=== PATIENT | male | born 1925 | race Caucasian/White ===

== ENCOUNTER 2017-01-15 16:27 | Inpatient (IN) | payer MEDICARE ==
--- NOTE | 2017-01-15 17:15 | ER Document Report ---
ED Medical Screen (RME) - General Mode of Arrival: Ambulatory Information source: Patient TRAVEL OUTSIDE OF THE [place] IN LAST 30 DAYS: No - HPI Patient complains to provider of: No complaints Associated Symptoms: Other - see notes above <CATERINA GRAJEDA - Last Filed: 01/15/17 17:10> <SHASHIINOCENCIOWILLIAM - Last Filed: 01/15/17 21:04> - General Chief Complaint: Psych Problem Stated Complaint: PSYCH EVAL Time Seen by Provider: 01/15/17 16:46 Notes: 89 year old male with family history of Alzheimer's was dropped off by his friend after [employer] told the friend to take the patient to the ED for evaluation earlier this afternoon. Patient is exhibiting flight of ideas and tangential thinking, and thus it is difficult to obtain a comprehensive HPI. Patient reports that he is here because he "was sick as hell and running around a pole which is not done around here." Patient states that his friend "Bret" brought him to the ED. Patient also reports that he lives alone in his truck. Patient came into the ED with a box full of medication including potassium, lisinopril, metoprolol, glipizide, aspirin, isosorbide mononitrate, furosemide, and Flomax. Patient claims that he is not taking many of these medications. The patient talks about taking a trip down to [place] to visit a friend who knows Princess Infante. He then quickly changes subject and talked about how his is a millionaire and that he will let her keep the money because she figured out away to earn it. Patient insists that we look up a book by the name of "[employer]" written by Ra Bates (himself). The book actually exists and pages of the book can be viewed and appear to exhibit similar stream of consciousness that the patient was relaying in the triage room. (CATERINA GRAJEDA) - Related Data Allergies/Adverse Reactions: No Known Allergies Allergy (Verified 12/11/15 10:43) Past Medical History - General Information source: Patient - Past Medical History Cardiac Medical History: Reports: Hx Coronary Artery Disease, Hx Hypercholesterolemia, Hx Hypertension, Hx Peripheral Vascular Disease Endocrine Medical History: Reports: Hx Diabetes Mellitus Type 2 Renal/ Medical History: Reports: Hx Renal Insufficiency. Denies: Hx Peritoneal Dialysis Musculoskeltal Medical History: Reports Hx Arthritis Psychiatric Medical History: Denies: Hx Depression Past Surgical History: Reports: Hx Adenoidectomy, Hx Cardiac Catheterization, Hx Cardiac Surgery - Quad Bypass, Hx Coronary Artery Bypass Graft - 4 vessel bypass 2004, Hx Tonsillectomy <CATERINA GRAJEDA - Last Filed: 01/15/17 17:10> Review of Systems - Review of Systems Constitutional: No symptoms reported EENT: No symptoms reported Cardiovascular: No symptoms reported Respiratory: No symptoms reported Gastrointestinal: No symptoms reported Genitourinary: No symptoms reported Male Genitourinary: No symptoms reported Musculoskeletal: No symptoms reported Skin: No symptoms reported Hematologic/Lymphatic: No symptoms reported Neurological/Psychological: No symptoms reported -: Yes All other systems reviewed and negative <CATERINA GRAJEDA - Last Filed: 01/15/17 17:10> Physical Exam - General General appearance: Other - smells of stale urine In distress: None - Neurological Neuro grossly intact: Yes - No evidence of facial droop - Psychological Associated symptoms: Flight of ideas, Tangential speech, Other - Patient appears to have loose relationship with reality and is expressing stream of consciousness thinking. Patient is also having delusions of grandeur describing friends in [place] that know Princess Chapman and a that was a baljinderaire. Patient is exhibiting perseveration when answering questions and has difficulty with word finding, often confabulating when he is unable to find words. <CATERINA GRAJEDA - Last Filed: 01/15/17 17:10> <WILLIAM CHAPA - Last Filed: 01/15/17 21:04> - Vital signs Vitals: Temp Pulse Resp BP Pulse Ox 98 F 100 16 134/95 H 100 01/15/17 16:40 01/15/17 16:40 01/15/17 16:40 01/15/17 16:40 01/15/17 16:40 - Neurological Notes: Patient is oriented to person and time, but has difficulty answering the question of place. (CATERINA GRAJEDA) Course - Laboratory Result Diagrams: 01/15/17 17:30 01/15/17 17:30 <WILLIAM CHAPA - Last Filed: 01/15/17 21:04> - Vital Signs Vital signs: Temp Pulse Resp BP Pulse Ox 98 F 100 16 134/95 H 100 01/15/17 16:40 01/15/17 16:40 01/15/17 16:40 01/15/17 16:40 01/15/17 16:40 - Laboratory Laboratory results interpreted by me: 01/15/17 01/15/17 01/15/17 17:15 17:30 17:30 RBC 4.30 L Hgb 12.7 L RDW 15.0 H Sodium 146.0 H Creatinine 1.58 H Est GFR ( Amer) 50 L Est GFR (Non-Af Amer) 42 L Direct Bilirubin 0.5 H Ammonia Urine Protein 30 H Urine Urobilinogen 4.0 H 01/15/17 17:30 RBC Hgb RDW Sodium Creatinine Est GFR ( Amer) Est GFR (Non-Af Amer) Direct Bilirubin Ammonia < 8.7 L Urine Protein Urine Urobilinogen Scribe Documentation - Scribe Written by Mark:: Mark Marin, 01/15/2017 1733 acting as scribe for :: Brenda <CATERINA GRAJEDA - Last Filed: 01/15/17 17:10>
[2017-01-15 17:52] LABS: ABSOLUTE EOSINOPHILS # (AUTO) 0.2 10^3/uL (0.0-0.6); ABSOLUTE LYMPHOCYTES (AUTO) 1.3 10^3/uL (0.5-4.7); ABSOLUTE MONOCYTES (AUTO) 0.8 10^3/uL (0.1-1.4); ABSOLUTE NEUT (AUTO) 4.6 10^3/uL (1.7-8.2); BASOPHILS % (AUTO) 0.6 % (0-2); EOSINOPHILS % (AUTO) 2.4 % (0-6); HEMATOCRIT 39.5 % (37.9-51.0); HEMOGLOBIN 12.7 g/dL (13.5-17.0); HGB HCT DIFFERENCE -1.4; LYMPHOCYTES % (AUTO) 19.3 % (13-45); MEAN CORPUSCULAR HEMOGLOBIN 29.5 pg (27.0-33.4); MEAN CORPUSCULAR HGB CONC 32.1 g/dL (32.0-36.0); MEAN CORPUSCULAR VOLUME 92 fl (80-97); MONOCYTES % (AUTO) 10.8 % (3-13); SEGMENTED NEUTROPHILS % (AUTO) 66.9 % (42-78); WHITE BLOOD COUNT 6.9 10^3/uL (4.0-10.5)
[2017-01-15 18:02] LABS: VENOUS BLOOD BASE EXCESS 0.6 mmol/L; VENOUS BLOOD HCO3 26.5 mmol/L (20-32); VENOUS BLOOD PCO2 47.6 mmHg (35-63); VENOUS BLOOD PH 7.36 (7.30-7.42)
[2017-01-15 18:08] LABS: ALANINE AMINOTRANSFERASE 50 U/L (21-72); ALBUMIN 3.9 g/dL (3.5-5.0); ALKALINE PHOSPHATASE 116 U/L (38-126); ANION GAP 13 (5-19); ASPARTATE AMINO TRANSFERASE 51 U/L (17-59); BILIRUBIN,DIRECT 0.5 mg/dL (0.0-0.4); BILIRUBIN,TOTAL 1.1 mg/dL (0.2-1.3); BLOOD UREA NITROGEN 19 mg/dL (7-20); CALCIUM 9.3 mg/dL (8.4-10.2); CARBON DIOXIDE 26 mmol/L (22-30); CHLORIDE 107 mmol/L (98-107); CREATININE RESULT 1.58 mg/dL (0.52-1.25); GLUCOSE 96 mg/dL (75-110); POTASSIUM 4.2 mmol/L (3.6-5.0); TOTAL PROTEIN 6.9 g/dL (6.3-8.2)
--- NOTE | 2017-01-15 18:18 | RADIOLOGY REPORT (SQ) ---
EXAM DESCRIPTION: CT HEAD WITHOUT COMPLETED DATE/TIME: 01/15/2017 5:57 pm REASON FOR STUDY: encephalopathy COMPARISON: None. TECHNIQUE: Axial images acquired through the brain without intravenous contrast. Images reviewed wi th bone, brain and subdural windows. Images stored on PACS. All CT scanners at this facility use dose modulation, iterative reconstruction, and/or weight based d osing when appropriate to reduce radiation dose to as low as reasonably achievable (ALARA). [facility]: Dose Right [facility]: CareDose [facility]: Dose Right [facility]: Teradose 4D [facility]: Smart Technologies RADIATION DOSE: Up-to-date CT equipment and radiation dose reduction techniques were employed. CTDIv ol: 64.6 mGy. DLP: 1163 mGy-cm. mGy. LIMITATIONS: None. FINDINGS: VENTRICLES: Normal size and contour. CEREBRUM: Cortical atrophy is present. No masses. No hemorrhage. No midline shift. Wynn/white mat ter differentiation is lost in area in the left parietal lobe. There is a broader area of decreased attenuation in the white matter in the left parietal lobe. CEREBELLUM: No masses. No hemorrhage. No alteration of density. No evidence for acute infarction. EXTRAAXIAL SPACES: No fluid collections. No masses. ORBITS AND GLOBE: No intra- or extraconal masses. Normal contour of globe without masses. CALVARIUM: No fracture. PARANASAL SINUSES: No fluid or mucosal thickening. SOFT TISSUES: No mass or hematoma. OTHER: No other significant finding. IMPRESSION: 1. Involutional changes of aging chronic microvascular ischemic disease. 2. A limited acute left parietal infarct cannot be ruled out. TECHNICAL DOCUMENTATION: JOB ID: [id number] Quality ID # [id number]: Final reports with documentation of one or more dose reduction techniques (e.g., Au tomated exposure control, adjustment of the mA and/or kV according to patient size, use of iterative reconstruction technique) 2010 [employer] [facility]- All Rights Reserved
--- NOTE | 2017-01-15 18:25 | RADIOLOGY REPORT (SQ) ---
EXAM DESCRIPTION: CHEST PA/LAT COMPLETED DATE/TIME: 01/15/2017 6:15 pm REASON FOR STUDY: encephalopathy COMPARISON: 11/20/2014 EXAM PARAMETERS: NUMBER OF VIEWS: two views TECHNIQUE: Digital Frontal and Lateral radiographic views of the chest acquired. RADIATION DOSE: NA LIMITATIONS: none FINDINGS: LUNGS AND PLEURA: The lungs are hyperexpanded. Small pleural effusions are suggested. Pu lmonary vascular congestion is seen. No localized infiltrate is appreciated. On the lateral view a rounded mass cannot be ruled out in the posterior costophrenic sulcus. MEDIASTINUM AND HILAR STRUCTURES: No masses or contour abnormalities. HEART AND VASCULAR STRUCTURES: The heart size is borderline. BONES: No acute findings. HARDWARE: None in the chest. OTHER: No other significant finding. IMPRESSION: Borderline cardiomegaly with small pleural effusions but no sergey CHF. Pulmonary vascul ar congestion is seen. Chronic lung changes are present. A rounded mass cannot be ruled out in the posterior costophrenic sulcus. TECHNICAL DOCUMENTATION: JOB ID: [id number] [id number]- All Rights Reserved
[2017-01-15 18:46] LABS: APPEARANCE,URINE CLEAR; BILIRUBIN,URINE NEGATIVE (NEGATIVE); GLUCOSE, URINE NEGATIVE (NEGATIVE); KETONES,URINE NEGATIVE (NEGATIVE); LEUKOCYTE ESTERASE,URINE NEGATIVE (NEGATIVE); NITRITE,URINE NEGATIVE (NEGATIVE); PROTEIN,URINE 30 mg/dL (NEGATIVE)
[2017-01-15 19:10] LABS: THYROID STIMULATING HORMONE 2.4 uIU/mL (0.47-4.68)
[2017-01-15 19:34] LABS: URINE BARBITURATES SCREEN NEGATIVE; URINE METHADONE SCREEN NEGATIVE; URINE OPIATES LOW NEGATIVE; URINE PHENCYCLIDINE SCREEN NEGATIVE
--- NOTE | 2017-01-15 22:44 | ER Document Report ---
ED General - General Chief Complaint: Psych Problem Stated Complaint: PSYCH EVAL Time Seen by Provider: 01/15/17 16:46 Mode of Arrival: Ambulatory Information source: Patient Notes: This is an 89-year-old man with coronary artery disease who is brought to the emergency room with a mental status change. Patient was apparently brought in by his friend because he was acting strange and driving erratically during the day. The patient lives alone. He states only family in the area is a nephew which he does not get along with. Patient does not have any complaints. Patient is brought to the ER large number of medicines. TRAVEL OUTSIDE OF THE [place] IN LAST 30 DAYS: No - HPI Onset: Just prior to arrival Onset/Duration: Sudden Quality of pain: No pain Severity: None Pain Level: Denies Associated symptoms: denies: Chest pain, Fever, Shortness of breath Exacerbated by: Denies Relieved by: Denies Similar symptoms previously: No Recently seen / treated by doctor: No - Related Data Allergies/Adverse Reactions: No Known Allergies Allergy (Verified 12/11/15 10:43) Past Medical History - General Information source: Patient - Social History Smoking Status: Former Smoker Chew tobacco use (# tins/day): No Frequency of alcohol use: None Drug Abuse: None Lives with: Alone Family History: Reviewed & Not Pertinent Patient has suicidal ideation: No Patient has homicidal ideation: No - Past Medical History Cardiac Medical History: Reports: Hx Coronary Artery Disease, Hx Hypercholesterolemia, Hx Hypertension, Hx Peripheral Vascular Disease Endocrine Medical History: Reports: Hx Diabetes Mellitus Type 2 Renal/ Medical History: Reports: Hx Renal Insufficiency. Denies: Hx Peritoneal Dialysis Musculoskeltal Medical History: Reports Hx Arthritis Psychiatric Medical History: Denies: Hx Depression Past Surgical History: Reports: Hx Adenoidectomy, Hx Cardiac Catheterization, Hx Cardiac Surgery - Quad Bypass, Hx Coronary Artery Bypass Graft - 4 vessel bypass 2004, Hx Orthopedic Surgery - hip, Hx Tonsillectomy Review of Systems - Review of Systems Constitutional: denies: Chills, Fever EENT: No symptoms reported Cardiovascular: No symptoms reported Respiratory: No symptoms reported Gastrointestinal: No symptoms reported Genitourinary: No symptoms reported Male Genitourinary: No symptoms reported Musculoskeletal: No symptoms reported Skin: No symptoms reported Hematologic/Lymphatic: No symptoms reported Neurological/Psychological: See HPI Physical Exam - Vital signs Vitals: Temp Pulse Resp BP Pulse Ox 98 F 100 16 134/95 H 100 01/15/17 16:40 01/15/17 16:40 01/15/17 16:40 01/15/17 16:40 01/15/17 16:40 Notes: Physical exam: GENERAL: An-year-old man, alert and oriented 3, confused. He has tangential speech. HEAD: Atraumatic, normocephalic. EYES: Pupils equal round and reactive to light, extraocular movements intact, sclera anicteric, conjunctiva are normal. ENT: TMs normal, nares patent, oropharynx clear without exudates. Moist mucous membranes. NECK: Normal range of motion, supple without lymphadenopathy or JVD. LUNGS: Breath sounds clear to auscultation bilaterally and equal. No wheezes rales or rhonchi. HEART: Regular rate and rhythm without murmurs, rubs or gallops. ABDOMEN: Soft, normoactive bowel sounds. No tenderness to palpation. No guarding, no rebound. No masses appreciated. EXTREMITIES: 2+ lower extremity pitting edema NEUROLOGICAL: Cranial nerves II through XII grossly intact. Normal speech, lower extremities, his sensory is grossly intact, his cerebellar is acceptable. NIH is 0. PSYCH: Normal mood, normal affect. SKIN: Warm, Dry, normal turgor, no rashes or lesions noted. Course - Re-evaluation Re-evalutation: 01/15/17 22:46 Note: This is an elderly gentleman with multiple medicines, history of coronary artery disease, presents to the emergency room with confusion and mental status changes. His NIH score is 0 (no focal neurologic defects). CT of the head shows possible new lacunar infarct. The patient does have atrial fibrillation which appears to be new as well. The plan will be 8 to admit to the medicine service as a possible new stroke in the setting of new atrial fibrillation. The patient does not meet criteria for thrombolytics based upon an unknown time of onset and an NIH score of 0 - Vital Signs Vital signs: Temp Pulse Resp BP Pulse Ox 97.7 F 100 18 150/81 H 94 01/15/17 23:01 01/15/17 23:01 01/15/17 23:01 01/15/17 23:01 01/15/17 23:01 - Laboratory Result Diagrams: 01/15/17 17:30 01/15/17 17:30 Laboratory results interpreted by me: 01/15/17 01/15/17 01/15/17 17:15 17:30 17:30 RBC 4.30 L Hgb 12.7 L RDW 15.0 H Sodium 146.0 H Creatinine 1.58 H Est GFR ( Amer) 50 L Est GFR (Non-Af Amer) 42 L Direct Bilirubin 0.5 H Ammonia Urine Protein 30 H Urine Urobilinogen 4.0 H 01/15/17 01/15/17 17:30 22:45 RBC Hgb RDW Sodium Creatinine Est GFR ( Amer) Est GFR (Non-Af Amer) Direct Bilirubin Ammonia < 8.7 L Urine Protein 30 H Urine Urobilinogen 4.0 H - Diagnostic Test Radiology reviewed: Image reviewed, Reports reviewed - CT of the head shows possible new lacunar infarct - EKG Interpretation by Me Rhythm: A.Fib - EKG shows atrial fibrillation with a ventricular rate of 114, no acute ST-T wave changes Discharge - Discharge Clinical Impression: acute CVA, Atrial Fibrillation new Condition: Stable Disposition: ADMITTED INPATIENT Admitting Provider: Hospitalist - [facility] Admitted: Telemetry
[2017-01-15 22:47] LABS: ADD ON TESTING BLD IN LAB ACKNOWLEDGE
[2017-01-15] MEDS ORDERED: METOPROLOL TARTRATE 50 MG TABLET PO ONE (22:49)
[2017-01-15] MEDS ORDERED: ASPIRIN 81 MG TABLET, CHEWABLE PO ONE (22:49)
[2017-01-15 23:02] LABS: ALCOHOL < 10 mg/dL (NONE DETECTED)
[2017-01-15 23:38] LABS: APPEARANCE,URINE CLEAR; BILIRUBIN,URINE NEGATIVE (NEGATIVE); GLUCOSE, URINE NEGATIVE (NEGATIVE); KETONES,URINE NEGATIVE (NEGATIVE); LEUKOCYTE ESTERASE,URINE NEGATIVE (NEGATIVE); NITRITE,URINE NEGATIVE (NEGATIVE); PROTEIN,URINE 30 mg/dL (NEGATIVE); URINE SPECIFIC GRAVITY 1.014
[2017-01-16] MEDS ORDERED: DEXTROSE 50%-WATER 25 GM/50 ML DISP.SYRIN IV PRN ×2 (01:40)
[2017-01-16] MEDS ORDERED: 1/2 NORMAL SALINE 1,000 ML IV PRN (01:40)
[2017-01-16] MEDS ORDERED: GLUCAGON,HUMAN RECOMB 1 MG INJ IM PRN (01:40)
[2017-01-16] MEDS ORDERED: DEXTROSE 40% GEL 15 GM TUBE PO PRN ×2 (01:40)
[2017-01-16 02:23] LABS: VENOUS BLOOD BASE EXCESS 1.6 mmol/L; VENOUS BLOOD HCO3 27.4 mmol/L (20-32); VENOUS BLOOD PCO2 48.1 mmHg (35-63); VENOUS BLOOD PH 7.37 (7.30-7.42)
[2017-01-16 02:37] LABS: ANION GAP 8 (5-19); BLOOD UREA NITROGEN 18 mg/dL (7-20); CALCIUM 8.8 mg/dL (8.4-10.2); CARBON DIOXIDE 25 mmol/L (22-30); CHLORIDE 112 mmol/L (98-107); CREATININE RESULT 1.33 mg/dL (0.52-1.25); GLUCOSE 84 mg/dL (75-110); POTASSIUM 3.6 mmol/L (3.6-5.0); SODIUM 145.4 mmol/L (137-145)
--- NOTE | 2017-01-16 05:23 | RADIOLOGY REPORT (SQ) ---
EXAM DESCRIPTION: NM LUNG VENT/PERF SCAN COMPLETED DATE/TIME: 01/16/2017 3:53 am REASON FOR STUDY: elev d dimer COMPARISON: CR, 01/15/2017. RADIONUCLIDE AND DOSE: 5.2 millicuries TC-99m MAA Intravenous 30.6 millicuries TC-99m DTPA Inhaled aerosol TECHNIQUE: Eight views of the lungs acquired post ventilation of DTPA aerosol. Eight matching views of the lungs acquired following injection of MAA. LIMITATIONS: None. FINDINGS: VENTILATION: Symmetric and mildly heterogeneous distribution of DTPA aerosol during ventil atory phase. No suspicious areas of photopenia as correlated with radiographs. PERFUSION: Perfusion images with mild nonspecific heterogeneity. No ventilation-perfusion mismatches . OTHER: No other significant finding. IMPRESSION: NEGATIVE FOR PULMONARY EMBOLI. TECHNICAL DOCUMENTATION: JOB ID: [id number] [employer]- All Rights Reserved
[2017-01-16 05:59] LABS: ANION GAP 10 (5-19); BLOOD UREA NITROGEN 18 mg/dL (7-20); CALCIUM 9.1 mg/dL (8.4-10.2); CARBON DIOXIDE 26 mmol/L (22-30); CHLORIDE 110 mmol/L (98-107); CHOLESTEROL 142.81 mg/dL (0-200); CREATININE RESULT 1.26 mg/dL (0.52-1.25); Direct HDL 41 mg/dL (>40); GLUCOSE 88 mg/dL (75-110); POTASSIUM 3.8 mmol/L (3.6-5.0); SODIUM 145.7 mmol/L (137-145); TRIGLYCERIDES 77 mg/dL (<150)
[2017-01-16 06:10] LABS: DIRECT LDL 95 mg/dL (<100)
[2017-01-16] MEDS: TAMSULOSIN HCL 0.4 MG CAP.SR.24H PO SCH (09:21)
[2017-01-16] MEDS: ASPIRIN 81 MG TABLET, ENT COATED PO SCH (09:22)
[2017-01-16] MEDS ORDERED: METOPROLOL TARTRATE 50 MG TABLET PO SCH (10:00)
[2017-01-16] MEDS: LEVALBUTEROL HCL NEB 0.63 MG/3 ML AMPUL NEB PRN (12:19)
[2017-01-16] MEDS ORDERED: FUROSEMIDE INJ/PF 40 MG/4 ML SDV IV ONE (13:00)
[2017-01-16] MEDS ORDERED: METOPROLOL TARTRATE 50 MG TABLET PO ONE (13:00)
--- NOTE | 2017-01-16 13:45 | EKG REPORT ---
SEVERITY:- ABNORMAL ECG - ATRIAL FIBRILLATION BORDERLINE RIGHT AXIS DEVIATION CONSIDER ANTEROSEPTAL INFARCT : Confirmed by: Wilian Miguel 16-Jan-2017 13:44:15
--- NOTE | 2017-01-16 15:19 | HISTORY AND PHYSICAL E ---
History and Physical NAME: ANDRES HENDRICKS : 1925 AGE: 89Y ADMITTED: 01/16/2017 ROOM: 329 CODE STATUS: DO NOT RESUSCITATE/DO NOT INTUBATE. PRIMARY CARE PROVIDER: ELISABET GUERRA MD OUTPATIENT [employer] MECHANIC: Jelani DING M.D. CHIEF COMPLAINT: Altered mental status. HISTORY OF PRESENT ILLNESS: The patient is an 89-year-old male with a past medical history of known coronary artery disease. The patient was brought into the emergency department with a chief complaint of a mental status change. The patient was apparently brought in by his friend because he was not acting right and was driving erratically during the day. The patient apparently lives alone. The patient states that his only family was his nephew, who he does not get along with; however, holds his power of sports attorney. The patient denies any other complaints. The patient was also brought into the emergency department with a large number of miscellaneous medications. The patient was noted to have a delayed response and underwent CT, which was suggestive of a left parietal infarction. The patient was also noted to be in atrial fibrillation and the patient was referred to the hospitalist for admission and management. PAST MEDICAL HISTORY: Past medical history is remarkable for: 1. Cerebrovascular disease. 2. Coronary artery disease. 3. Chronic kidney disease stage 3. 4. Diabetes mellitus type 2. 5. Dyslipidemia. 6. Hypertension. PAST SURGICAL HISTORY: Past surgical history is remarkable for: 1. Adenoidectomy. 2. Heart catheterization. 3. Coronary artery bypass grafting x4 grafts. 4. Hip repair. 5. Tonsillectomy ALLERGIES: No known drug allergies. MEDICATIONS: Home medications include: 1. Amlodipine 5 mg p.o. daily 2. Aspirin 81 mg p.o. daily. 3. Lasix 40 mg p.o. daily. 4. Glipizide 10 mg p.o. b.i.d. 5. Isosorbide mononitrate 60 mg p.o. daily. 6. Lisinopril 40 mg p.o. b.i.d. 7. Lopressor 50 mg p.o. b.i.d. 8. Potassium chloride 20 mEq p.o. daily. 9. Zocor 5 mg p.o. daily. 10. Flomax 0.4 mg p.o. daily. SOCIAL HISTORY: The patient currently resides at home alone. The patient is currently an APS case. His surrogate decision maker is Thomas , who may be reached at , who is his power of sports attorney and also his nephew. The patient does admit to be a former smoker, unable at this time to articulate how much he has smoked. He denies any alcohol abuse or illicit drug use. FAMILY MEDICAL HISTORY: The patient does not have children. Family history is positive for Alzheimer's dementia in both of his parents and family members and the patient is unsure about his siblings. REVIEW OF SYSTEMS: A full review of systems cannot be appreciated given the patient's mental status and confusion. PHYSICAL EXAMINATION: GENERAL: On examination, the patient is a well-developed, reasonably nourished, unkempt appearing 89-year-old male who is awake, alert. He is oriented to place, but no necessarily oriented to person, time, or situation. He does not appear to be in any acute distress. VITAL SIGNS: Temperature is 97.8, pulse 111, respirations 18, blood pressure is 127/94, oxygen saturation is 98% on 3 L nasal cannula. INTEGUMENTARY: Skin is warm and dry. No rash. He is not diaphoretic. HEENT: Pupils equal, round, and reactive to light and accommodation. Conjunctivae pink. Sclerae are nonicteric. There are no mouth lesions. Tongue is midline. The patient had poor dentition. NECK: Supple. There is no JVD. No palpable lymphadenopathy or thyromegaly. CARDIOVASCULAR SYSTEM: Heart is irregularly irregular. There is no murmur or rub. CHEST: Fine bilateral basal crackles, symmetrical, slightly labored. ABDOMEN: Soft, nontender, and nondistended. Bowel sounds are present. No palpable organomegaly. BACK: No CVA tenderness or sacral edema. EXTREMITIES: No clubbing, cyanosis, or peripheral signs of embolization. There are +1 pedal pulses noted bilaterally with evidence of chronic lower extremity edema. DIAGNOSTIC DATA: Lab values are as follows: Hematology obtained on 01/15/2017: WBC's are 6.9, hemoglobin is 12.7, hematocrit is 39.5, platelet count is 246,000. Coagulation obtained on 01/15/2017: D-dimer is 3.50. VBG obtained on 01/16/2017 with pH of 7.37, pCO2 is 48.1, bicarb is 27.4. Chemistries obtained on 01/16/2017: Sodium is 145, potassium is 3.8, chloride is , carbon dioxide 26, BUN 18, creatinine is 1.26, glucose 88, calcium is 9.1. Troponin is 0.023. Triglycerides of 77, cholesterol 142, LDL 95, VLDL is 15, HDL is 41. Urinalysis obtained on 01/15/2017: Color yellow, appearance clear, pH is 6.0, specific gravity is 1.014, protein 30, glucose negative, ketones negative, occult blood negative, nitrite negative, bilirubin negative, urobilinogen is 4.0, leukocyte esterase is negative, WBC's 0, RBC's 0, epithelial squamous ells less than 1, mucus rare, ascorbic acid is negative. VQ scan obtained on 01/16/2017 reveals low probability. IMPRESSION AND PLAN: 1. Acute cerebrovascular accident. Have a high suspicion for cardioembolic event given the patient's new A-fib. However, will obtain stat MRI of the brain and full-dose statin. Consult therapies and follow. 2. Atrial fibrillation with rapid ventricular response. Rate has been better controlled since resuming the patient's beta anabelle. Will continue to monitor this. Will defer Cardizem drip for now since his heart rate is now less than 120. Do appreciate Dr Ramirez's input with this. Will follow. 3. Crackles. Do have a suspicion the patient most likely has had some heart failure, especially due to atrial fibrillation. Will diuresis the patient, await echocardiogram for further classification. 4. Benign prostatic hyperplasia. Will resume patient's Flomax. 5. Hypertension. Will allow permissive hypertension by holding TRINIDAD inhibitor. DISPOSITION: The patient is a DO NOT RESUSCITATE/DO NOT INTUBATE. Pending the patient's symptomatology and diagnostic findings, will reevaluate as needed. The patient will be admitted to inpatient IMCU, as the patient's expected length of stay will surpass 2 midnights. TIME: Time spent on this admission, including assessment and plan, physical examination, patient education, and family meeting was 40 minutes. DICTATING PHYSICIAN: THOMAS HANNA NP [id number] PHY#: [id number] ID: [id number] JOB#: [id number] ACCT: [id number] cc: > [facility]
--- NOTE | 2017-01-16 16:13 | RADIOLOGY REPORT (SQ) ---
EXAM DESCRIPTION: MRI HEAD WITHOUT COMPLETED DATE/TIME: 01/16/2017 1:37 pm REASON FOR STUDY: CVA, New Afib COMPARISON: CT 01/15/2017. MRI from 2016. TECHNIQUE: Multiplanar imaging includes non-contrasted T1, T2, FLAIR, and diffusion with ADC map seq uences. Images stored on PACS. LIMITATIONS: None. FINDINGS: ANATOMY: No anomalies. Normal vascular flow voids. Pituitary fossa normal. CSF SPACES: Mildly prominent, age related involution. No hemorrhage or mass or shift in the extra-ax ial space. CEREBRUM: Posterior left frontal old infarct. Associated FLAIR hyperintensity. Spotty small vessel disease otherwise. No hemorrhage or mass or shift or hydrocephalus. POSTERIOR FOSSA: Relatively intact cerebellum. No significant mastoid fluid or IAC pathology. DIFFUSION IMAGING: Negative for acute or sub-acute infarction. ORBITS: No masses. Globes normal. PARANASAL SINUSES: No fluid levels. Mucosa normal. OTHER: No other significant finding. IMPRESSION: 1. Chronic changes. No acute infarct identified. TECHNICAL DOCUMENTATION: JOB ID: [id number]- All Rights Reserved
[2017-01-16] MEDS: INSULIN LISPRO 100 UNIT/ML 3 ML VIAL SUBCUT PRN ×2 (18:01→22:36)
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
[2017-01-16] MEDS ORDERED: APIXABAN 5 MG TABLET PO ONE (19:15)
--- NOTE | 2017-01-16 20:03 | CONSULTATION REPORT E ---
Consultation Report NAME: ANDRES HENDRICKS : 1925 AGE: 89Y DATE: 01/16/2017 ROOM: 329 A TO: MORENITA SONI M.D. FROM: TORSTEN ZHAO M.D. Requesting Physician REASON FOR CONSULTATION: The patient with confusion and new onset atrial fibrillation, most likely cerebrovascular accident. Reason for consultation is management of atrial fibrillation. HISTORY OF PRESENT ILLNESS: The patient is an 89-year-old male for whom a history is not obtainable since the patient is confused and disoriented x3. He has a past history of known coronary artery disease. The patient was brought into the emergency room by his friend since the patient was acting strange and was confused and disoriented and was driving erratically. No further history is obtained. There is no history of syncope or fall. The patient was found to be in atrial fibrillation with rapid ventricular response being not very fast. The patient underwent a CT of the head which was suggestive of a left parietal infarction, which explained the patient's confusion and disorientation. PAST MEDICAL HISTORY: 1. Positive for a history of cerebrovascular disease. It is not known whether the patient had a prior CVA, although it does not show on the CT scan that he has an old CVA. 2. He has history of coronary artery disease, history of coronary artery bypass graft surgery. It is not known whether the patient had an CA or not. 3. Diabetes mellitus type 2, dyslipidemia, hypertension. 4. There is no history of thyroid disease. 5. He also has history of chronic kidney disease stage 3. PAST SURGICAL HISTORY: 1. Positive for *------*. 2. Heart catheterization. 3. Coronary artery bypass graft surgery x4. 4. Hip repair. 5. Tonsillectomy. ALLERGIES: No known allergies. SOCIAL HISTORY: The patient lives alone in a home. He has a history of smoking in the past. He has not smoked in a few years. There is no history of EtOH abuse. CODE STATUS: He is a DNR. His surrogate healthcare decision maker is his nephew, Mr. Thomas Calixto, who has the power of criminal attorney. FAMILY HISTORY: Positive for Alzheimer's dementia in both of his parents and family members. REVIEW OF SYSTEMS: Not obtainable due to the patient's confusion. MEDICATIONS: 1. Aspirin 325 p.o. now x1 and aspirin 81 p.o. daily. 2. Atorvastatin 80 mg p.o. at bedtime. 3. Glutose 15 g p.o. p.r.n. and 30 g p.o. p.r.n., glutose 40% gel for hypoglycemia. 4. Hypoglycemia precautions with dextrose 50%, 25 g and 12.5 g p.r.n. hypoglycemia. 5. Glucagon 1 mg IM p.r.n. hypoglycemia. 6. Accu-cheks a.c., t.i.d., and bedtime with sliding scale insulin coverage. 7. Xopenex 0.63 mg nebulizer treatment q.6 hours p.r.n. 8. Metoprolol tartrate that is Lopressor 100 mg p.o. x1 and 100 mg p.o. q.12 hours. 9. Flomax 0.4 mg p.o. daily. PHYSICAL EXAMINATION: GENERAL: On examination the patient is well-built, seems to be slightly short of breath. He is very much confused but moves all 4 extremities. VITAL SIGNS: He is afebrile with a temperature of 97.8 degrees Fahrenheit, pulse of 111 beats per minute, blood pressure 127/91, respirations are 18 per minute, O2 saturations are 98% on 3 L nasal cannula. HEENT: Head is atraumatic, normocephalic. Eyes: Pupils are equal, round and regular, reactive to light and accommodation. Extraocular movements are normal. There is no conjunctival pallor. There is no scleral icterus. Ears: Tympanic membranes are intact. External auditory canals are clear. Nose: There is no deviated nasal septum. There is no inflammation of the nasal mucous membrane. Mouth: Mucous membranes of the mouth are moist, tongue is moist. There is no ulcer, there is no bleeding from the gums. Throat: There is no redness of the oropharynx. There are no exudates. SKIN: There are no skin rashes. There is no petechiae or ecchymosis. There are no skin lesions. NECK: Supple. There is no JVD. There is no lymphadenopathy. There is no goiter. Carotids are equal. There is no bruit. Trachea is central. LUNGS: Show a few rales at the bases suggestive of heart failure. There is no chest wall tenderness. HEART: S1 and S2 is heard. There is a variable S1 in intensity. There is no S3 gallop. There is no S4 gallop. There is a systolic murmur in the left sternal border and the apex. There is no rub. ABDOMEN: Soft, nontender. There is no hepatosplenomegaly. Bowel sounds are well heard. There are no tender areas or masses. EXTREMITIES: Femorals are slightly diminished. There are no femoral bruits. There is chronic mild pedal edema with venous stasis dermatitis. There is no cyanosis or clubbing or peripheral signs of embolization. Capillary refill is normal. There is no DVT or cellulitis. There is no calf tenderness. CENTRAL NERVOUS SYSTEM: The patient is conscious, but disoriented x3. No focal deficits. PSYCHIATRIC: The patient does not appear to be agitated. The patient is not in a situation where he can cooperate with a psychiatric evaluation. DIAGNOSTIC STUDIES: The patient's EKG shows atrial fibrillation, borderline right axis deviation, consider anteroseptal infarct versus lead placement. Most likely the patient had an old anterior septal CA. Head CT shows involutional changes of aging, chronic microvascular ischemic disease limited, acute left partial infarct cannot be ruled out. The patient's head MRI shows chronic changes, no acute infarct identified. The patient's chest x-ray shows borderline cardiomegaly with small pleural effusions but no sergey CHF. Pulmonary vascular congestion is seen. Chronic lung changes are present. A rounded mass cannot be ruled out in the posterior chronic costophrenic sulcus. The patient's lung scan/VQ shows negative for pulmonary emboli. The patient's white count is 6900, hemoglobin 12.7, hematocrit is 39.5, and a platelet count is 246,000. The patient's D-dimer is 3.58. The patient's sodium is 145.7, potassium is 3.8, chloride 110, CO2 is 26. The patient's BUN is 18, creatinine 1.26, GFR is 54 which is stage 3 chronic kidney disease, glucose is 88. His triglycerides are 77, his LDL cholesterol is 95, his HDL cholesterol is 41. The patient's cardiac enzymes are negative x3 in the form of troponin I being 0.028, 0.026, and 0.023. The patient's thyroid function test show a TSH of 2.40, free T4 is 1.15. IMPRESSION: 1. Most likely clinically acute cerebral infarct. In view of the patient's A-fib most likely embolic. Need to talk to the patient's power of criminal attorney about starting anticoagulation with an oral anticoagulation agent in view of the patient's renal dysfunction, advanced age. 2. Most likely he has mild congestive heart failure. LV ejection fraction not known. Agree with giving a small dose of Lasix. 3. Earlier atrial fibrillation with rapid ventricular response. At present ventricular responses of 100. Note that the patient is on metoprolol 100 mg q.12 hours. Would recommend continuing the patient's current medication with *------* from the heart rate coming down is high. 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 4. Coronary artery disease. History of coronary artery bypass graft surgery. No evidence of CA this examination. 5. 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 6. Chronic kidney disease stage 3A. 7. Hypertension. Blood pressure diastolic is still a little bit up. Would recommend adding an TRINIDAD inhibitor. Note the patient was seen at 12 noon, 40 minutes spent on the patient with more than 50% of the time spent on direct patient care and also reviewing the patient's records this admission since a history could not be obtained from the patient. His medications were reviewed and medications have been adjusted. Would also place the patient on Lasix 20 mg p.o. daily. As mentioned earlier will talk to the patient's nephew who is the power of criminal attorney in view of starting the patient on anticoagulation since the patient with renal failure and advanced age is at an increased risk of bleeding complications. But the patient did have a stroke and his corrected [id number] score is very high. As mentioned earlier clinical it sounds like a CVA in spite of the MRI being negative. This is also discussed with the hospitalist taking care of the patient and coordination of care done. Note this is a case that requires highly complex medical decision making in view of the patient's age, renal failure, clinical stroke, and high corrected [id number] score with discussion being on whether to start the patient on chronic anticoagulation therapy. DICTATING PHYSICIAN: MORENITA SONI M.D. [id number] PHY#: [id number] ID: [id number] JOB#: [id number] ACCT: [id number] cc:MORENITA SONI M.D. >
[2017-01-16] MEDS: METOPROLOL TARTRATE 50 MG TABLET PO SCH (22:10)
[2017-01-16] MEDS: ATORVASTATIN CALCIUM 80 MG TABLET PO SCH (22:11)
[2017-01-16] MEDS: LISINOPRIL 5 MG TABLET PO SCH (22:11)
[2017-01-17] MEDS: LEVALBUTEROL HCL NEB 0.63 MG/3 ML AMPUL NEB PRN (00:19)
[2017-01-17] MEDS: METOPROLOL TARTRATE 50 MG TABLET PO SCH ×2 (07:42→23:07)
[2017-01-17] MEDS ORDERED: DILTIAZEM HCL INJ 25 MG/5 ML VIAL ONE (08:22)
[2017-01-17 09:35] LABS: ARTERIAL BLOOD BASE EXCESS 0.6 mmol/L; ARTERIAL BLOOD O2 SATURATION 97.8 % (94-98)
[2017-01-17] MEDS ORDERED: DILTIAZEM HCL INJ 25 MG/5 ML VIAL IV ONE (10:00)
[2017-01-17] MEDS: LISINOPRIL 5 MG TABLET PO SCH ×2 (10:07→23:07)
[2017-01-17] MEDS: ASPIRIN 81 MG TABLET, ENT COATED PO SCH (10:08)
[2017-01-17] MEDS: FUROSEMIDE 20 MG TABLET PO SCH (10:08)
[2017-01-17] MEDS: TAMSULOSIN HCL 0.4 MG CAP.SR.24H PO SCH (10:08)
[2017-01-17] MEDS ORDERED: FUROSEMIDE INJ/PF 40 MG/4 ML SDV ONE (10:09)
[2017-01-17] MEDS ORDERED: APIXABAN 5 MG TABLET PO ONE (11:00)
[2017-01-17 11:08] LABS: ANION GAP 10 (5-19); BLOOD UREA NITROGEN 21 mg/dL (7-20); CALCIUM 8.9 mg/dL (8.4-10.2); CARBON DIOXIDE 28 mmol/L (22-30); CHLORIDE 106 mmol/L (98-107); CREATININE RESULT 1.24 mg/dL (0.52-1.25); GLUCOSE 210 mg/dL (75-110); SODIUM 143.6 mmol/L (137-145)
[2017-01-17] MEDS ORDERED: FUROSEMIDE INJ/PF 40 MG/4 ML SDV IV ONE ×2 (11:30→13:30)
--- NOTE | 2017-01-17 12:39 | PROGRESS NOTE E ---
Progress Note NAME: ANDRES HENDRICKS : 1925 AGE: 89Y DATE: 01/17/2017 ROOM: 329 SUBJECTIVE: The patient is lying in bed. The patient had been quite dyspneic this morning with very minimal activity. The patient remains confused at times. Heart rate was significantly elevated but responded well to a bolus of Cardizem. The patient is unable to provide any meaningful history and is unable to voice any concerns at this time. REVIEW OF SYSTEMS: The rest of the review of systems is unobtainable given the patient's mental status. MEDICATIONS: Medications have been reviewed. OBJECTIVE: GENERAL: The patient is an 89-year-old male who is awake, alert. He is oriented to place but not fully oriented to person, time nor situation, does not appear to be in any acute distress. VITAL SIGNS: As follows: Temperature is 97.3, pulse 69, respirations 20, blood pressure is 147/96, oxygen saturation is 96on a [id number]. SKIN: Warm and dry. No rash. He is not diaphoretic. HEENT: Pupils equal, round, reactive to light and accommodation. Conjunctivae pink. NECK: JVP is to the level of the right clavicle. CARDIOVASCULAR SYSTEM: Heart is irregularly irregular. There is no murmur or rub. CHEST: Symmetrical. Bilateral basal crackles. ABDOMEN: Tight. No area of focal tenderness. BACK: No CVA tenderness, sacral edema. EXTREMITIES: No clubbing, cyanosis. The patient does appear to have evidence of chronic edema of his lower extremities. PSYCHIATRIC: Somewhat confused. DIAGNOSTICS: Lab values are as follows: Chemistry obtained on 01/17/2017; sodium is 143, potassium 4.3, chloride is 106, carbon dioxide 28, BUN 21, creatinine is 1.24, glucose 210, calcium is 8.9. IMPRESSION AND PLAN: 1. ATRIAL FIBRILLATION WITH RAPID VENTRICULAR RESPONSE. The patient responded well to a bolus of Cardizem. I do appreciate Cardiology's input with this. The patient is fully anticoagulated. 2. CEREBROVASCULAR DISEASE. The patient had no evidence of acute infarction on MRI. 3. ACUTE SYSTOLIC CONGESTIVE HEART FAILURE, MOST LIKELY DUE TO THE RAPID VENTRICULAR RESPONSE. The patient has responded well to diuresis. Will continue this. Hopefully this will improve respiratory symptoms as well. 4. BENIGN PROSTATIC HYPERPLASIA. Will continue Flomax. 5. HYPERTENSION. Blood pressures are more improved. DISPOSITION: The patient is a DO NOT RESUSCITATE/DO NOT INTUBATE. Pending patient's symptomatology and diagnostic findings, will re-evaluate as needed. Time spent on this followup including assessment, plan, physical examination, patient education, speciality collaboration, and re-assessment is 30 minutes. DICTATING PHYSICIAN: KELL HANNA NP [id number] PHY#: [id number] ID: [id number] JOB#: [id number] ACCT: [id number] cc:KELL HANNA NP > MTDD
[2017-01-17] MEDS ORDERED: FUROSEMIDE INJ/PF 40 MG/4 ML SDV IV SCH ×2 (14:00→22:00)
[2017-01-17] MEDS: DILTIAZEM HCL/D5W 125 MG/125 ML RTUINJ IV PRN (15:23)
[2017-01-17] MEDS ORDERED: BUMETANIDE INJ/PF 1 MG/4 ML SDV IV ONE (16:30)
[2017-01-17] MEDS ORDERED: METHYLPREDNISOLONE INJ 125 MG/2 ML SDV IV ONE (16:30)
[2017-01-17] MEDS ORDERED: POTASSIUM CHLORIDE 10 MEQ TABLET.SA PO ONE (16:30)
[2017-01-17] MEDS: APIXABAN 5 MG TABLET PO SCH (17:39)
[2017-01-17] MEDS: INSULIN LISPRO 100 UNIT/ML 3 ML VIAL SUBCUT PRN (17:40)
[2017-01-17] MEDS ORDERED: APIXABAN 5 MG TABLET PO SCH (18:00)
--- NOTE | 2017-01-17 19:59 | PROGRESS NOTE E ---
Progress Note NAME: ANDRES HENDRICKS : 1925 AGE: 89Y DATE: 01/17/2017 ROOM: 329 SUBJECTIVE: Note that the patient is very drowsy. He is having respiratory difficulty. He is on a partial nonrebreather. He continues to be in atrial fibrillation. The patient is very confused and unable to obtain a history. He seems to have orthopnea but no leg edema or PND but cannot be sure. There is no arrhythmia seen on the monitor. Note: Review of systems is not obtainable since the patient is obtunded and very drowsy and in respiratory difficulty. Medications have been reviewed. OBJECTIVE: GENERAL: On examination, the patient is an 89-year-old male who is awake and very drowsy and very confused. VITAL SIGNS: He is afebrile with a temperature of 97.4 degrees Fahrenheit, pulse is 64 beats per minute, blood pressure is 147/96 earlier and subsequently his blood pressure is 120/60. Respirations are 20 per minute, O2 saturations are 99% on a partial nonrebreather with an O2 flow rate of 10 L/min. HEENT: Head is atraumatic, normocephalic. Eyes: Pupils are equal, round and reactive to light. ENT is negative. NECK: Supple. There is mild JVD present. Carotids are equal. There is no bruit. There is no lymphadenopathy. There is accessory muscles of respiration in use. LUNGS: Show bibasilar rales of CHF. HEART: S1 and S2 is heard. There is a variable S1 present. There is no S3 gallop. There is no S4 gallop. There is a systolic murmur in the left sternal border and the apex. There is no rub. ABDOMEN: Soft, nontender. There is no hepatosplenomegaly. Bowel sounds are well heard. EXTREMITIES: There is no clubbing or cyanosis. There is no evidence of cellulitis. There is evidence of chronic mild pedal edema in the lower extremities with venous stasis dermatitis. CENTRAL NERVOUS SYSTEM: The patient is very drowsy but moves all 4 extremities. PSYCHIATRIC: The patient is confused. DIAGNOSTIC STUDIES: The patient's 24-hr intake has been 1436 mL; output is 750 mL. The patient's sodium is 143.6, potassium is 4.0, chloride is 106, CO2 is 28, BUN is 21, creatinine 1.24, GFR is reduced at 55 mL. This is chronic kidney disease stage 3. His glucose is 210 and his calcium is 8.9. Note that the patient's MRI of the brain does not show any CVA. IMPRESSION: 1. ATRIAL FIBRILLATION. At present controlled ventricular response. Continue the patient on Cardizem drip. 2. RESPIRATORY FAILURE. Would recommend continuing the patient on partial nonrebreather. 3. CONGESTIVE HEART FAILURE. It is not known whether this is [id number] systolic heart failure. Will get an echocardiogram later on to assess her LV ejection fraction. Continue the patient on diuretic. 4. BENIGN PROSTATIC HYPERPLASIA. 5. HYPERTENSION. Blood pressure seems to be well controlled. 6. CONFUSION AND DISORIENTATION. Although the patient does have CVA, the patient probably has chronic microvascular ischemia and probably has early dementia. The patient's prognosis is guarded. NOTE: Thirty minutes spent on the patient with more than 50% of the time spent on direct patient care. His medications have been reviewed and discussed with the attending physician on the case and coordination of care done. Will check an echo in the morning. Note: In view of the patient's confusion, the patient's congestive heart failure and not knowing what his LV ejection fraction is, this requires highly complex medical decision making. Will follow with you. Note that the patient is DNR and his nephew is his healthcare [id number]. DICTATING PHYSICIAN: MORENITA SONI M.D. [id number]#: [id number] ID: [id number] JOB#: [id number] ACCT: [id number] cc: >
[2017-01-17] MEDS: BUMETANIDE INJ/PF 1 MG/4 ML SDV IV SCH (23:03)
[2017-01-17] MEDS: METHYLPREDNISOLONE INJ 40 MG/1 ML SDV IV SCH (23:05)
[2017-01-17] MEDS: ATORVASTATIN CALCIUM 80 MG TABLET PO SCH (23:07)
[2017-01-17] MEDS: LEVALBUTEROL HCL NEB 1.25 MG/3 ML AMPUL NEB SCH (23:16)
[2017-01-18] MEDS: INSULIN LISPRO 100 UNIT/ML 3 ML VIAL SUBCUT PRN ×5 (01:00→22:18)
[2017-01-18] MEDS ORDERED: METOPROLOL TARTRATE PF/INJ 5 MG/5 ML SDV IV ONE (01:15)
[2017-01-18] MEDS: DILTIAZEM HCL/D5W 125 MG/125 ML RTUINJ IV PRN ×3 (03:18→23:30)
[2017-01-18] MEDS: METHYLPREDNISOLONE INJ 40 MG/1 ML SDV IV SCH ×3 (05:35→21:12)
[2017-01-18 05:58] LABS: HEMATOCRIT 38.7 % (37.9-51.0); HEMOGLOBIN 12.5 g/dL (13.5-17.0); HGB HCT DIFFERENCE -1.2; MEAN CORPUSCULAR HEMOGLOBIN 29.3 pg (27.0-33.4); MEAN CORPUSCULAR HGB CONC 32.4 g/dL (32.0-36.0); MEAN CORPUSCULAR VOLUME 90 fl (80-97); RED BLOOD COUNT 4.28 10^6/uL (4.35-5.55); RED CELL DISTRIBUTION WIDTH 14.9 % (11.5-14.0); WHITE BLOOD COUNT 6.9 10^3/uL (4.0-10.5)
[2017-01-18 06:21] LABS: ANION GAP 12 (5-19); BLOOD UREA NITROGEN 21 mg/dL (7-20); CARBON DIOXIDE 26 mmol/L (22-30); CHLORIDE 105 mmol/L (98-107); CREATININE RESULT 1.22 mg/dL (0.52-1.25); GLUCOSE 230 mg/dL (75-110); MAGNESIUM 1.9 mg/dL (1.6-2.3); POTASSIUM 3.6 mmol/L (3.6-5.0); SODIUM 143.1 mmol/L (137-145)
[2017-01-18] MEDS: LEVALBUTEROL HCL NEB 1.25 MG/3 ML AMPUL NEB SCH ×3 (08:14→23:54)
[2017-01-18] MEDS: LISINOPRIL 5 MG TABLET PO SCH ×2 (09:03→21:12)
[2017-01-18] MEDS: ASPIRIN 81 MG TABLET, ENT COATED PO SCH (09:04)
[2017-01-18] MEDS: TAMSULOSIN HCL 0.4 MG CAP.SR.24H PO SCH (09:04)
[2017-01-18] MEDS: FUROSEMIDE 20 MG TABLET PO SCH (09:04)
[2017-01-18] MEDS: APIXABAN 5 MG TABLET PO SCH ×2 (09:08→17:47)
[2017-01-18] MEDS: BUMETANIDE INJ/PF 1 MG/4 ML SDV IV SCH (09:09)
[2017-01-18] MEDS ORDERED: METOPROLOL TARTRATE PF/INJ 5 MG/5 ML SDV IV SCH (10:00)
--- NOTE | 2017-01-18 10:59 | PROGRESS NOTE E ---
Progress Note NAME: ANDRES HENDRICKS : 1925 AGE: 89Y DATE: 01/18/2017 ROOM: 329 SUBJECTIVE: The patient is currently lying in bed. He is on nasal cannula. Every night, the patient became increasingly dyspneic and was placed on BiPAP. Overall, he appears much improved. The patient now appears to be able to complete sentences. He denies any nausea, vomiting, diarrhea. No shortness of breath, dizziness, or chest pain. No fevers or chills. He is still from a cognitive standpoint, but he is seen by Psych and this appears to be a dementia issue and the patient does not voice any other concerns at this time. BRIEF HISTORY: The patient is an 89-year-old male with a past medical history of vascular dementia and cerebrovascular disease. The patient presented to the emergency department with a chief complaint of altered mental status. The patient, who is an APS case, has been having ever-increasing confusion, but had an abrupt onset. The patient does have a nephew who is a power of regulatory attorney, who does oversee the patient's affairs from a distance, as the patient himself does not get along with him. APS has been investigating the case to find the patient placement. Regardless, the patient was noted to be in atrial fibrillation and has required a Cardizem drip. The patient was subsequently volume overloaded and has diuresed relatively well with Lasix and then was transitioned to Bumex, fear of diuretic resistance, and the patient is more comfortable. REVIEW OF SYSTEMS: A full review of systems cannot be appreciated given the patient's mental status. MEDICATIONS: Medications have been reviewed. OBJECTIVE: GENERAL: The patient is an awake and alert 89-year-old male, who is oriented to place, but now fully oriented to situation. He does not appear to be in acute distress. VITAL SIGNS: Temperature is 97.6, pulse 107, respirations 22, blood pressure is 135/71, oxygen saturation is 94% on 3 L nasal cannula. SKIN: Warm and dry. No rash. He is not diaphoretic. HEENT: Pupils equal, round, and reactive to light and accommodation. Conjunctivae pink. NECK: No JVD. CARDIOVASCULAR SYSTEM: Heart is irregularly irregular. There is no rub. CHEST: The patient has bilateral basal crackles, diminished, symmetrical, not currently labored. ABDOMEN: Soft, nontender, and nondistended, but firm. BACK: There is no sacral edema. EXTREMITIES: The patient has evidence of chronic edema in his lower extremities, but warm to the touch. PSYCHIATRIC: The patient is somewhat confused, but able to answer questions. DIAGNOSTIC DATA: Lab values are as follows: Hematology obtained on 01/18/2017: WBC's are 6.7, hemoglobin is 12.5, hematocrit is 38.7, platelet count is 225,000. Chemistries obtained on 01/18/2017: Sodium is 143, potassium is 3.6, chloride is 105, carbon dioxide 26, BUN 22, creatinine is 1.22. Glucose 230, calcium is 9.0, magnesium is 1.9. IMPRESSION AND PLAN: 1. ATRIAL FIBRILLATION WITH RAPID VENTRICULAR RESPONSE. I do appreciate Cardiology's input with this. Currently on a Cardizem drip. The patient is fully anticoagulated. The patient has good pressure to work with, so will continue his beta anabelle as well. 2. CEREBROVASCULAR DISEASE. NO EVIDENCE OF ACUTE INFARCTION ON MRI. Will continue home medications. 3. ACUTE SYSTOLIC CONGESTIVE HEART FAILURE, MOST LIKELY DUE TO RAPID VENTRICULAR RESPONSE. Currently awaiting a repeat echocardiogram, most likely there is a diastolic component to this. He has responded very well to diuresis at this point. We will repeat chest x-ray though. Hopefully, we can differentiate some of this dyspnea to ensure there is no underlying pneumonia, that sort of thing. 4. BENIGN PROSTATIC HYPERPLASIA. Will continue Flomax. 5. HYPERTENSION. BLOOD PRESSURES OVERALL ARE IMPROVED. Continue current regimen. DISPOSITION: The patient is a DO NOT RESUSCITATE/DO NOT INTUBATE. Pending the patient's symptomatology and diagnostic findings, will reevaluate in the a.m. TIME: Time spent on this followup including assessment, plan, physical examination, patient education, and speciality collaboration was 30 minutes. DICTATING PHYSICIAN: KELL HANNA NP [id number] PHY#: [id number] ID: [id number] JOB#: [id number] ACCT: [id number] cc: >
[2017-01-18] MEDS: METOPROLOL TARTRATE 50 MG TABLET PO SCH (11:04)
--- NOTE | 2017-01-18 12:00 | RADIOLOGY REPORT (SQ) ---
EXAM DESCRIPTION: CHEST SINGLE VIEW COMPLETED DATE/TIME: 01/18/2017 9:18 am REASON FOR STUDY: CHF, hypoxia, dyspnea ?changes COMPARISON: 01/15/2017 NUMBER OF VIEWS: One view. TECHNIQUE: Single frontal radiographic image of the chest acquired. LIMITATIONS: Positioning. Portable technique. FINDINGS: LUNGS AND PLEURA: Increasing parenchymal density lateral to the right heart border. MEDIASTINUM AND HEART: Stable heart size and mediastinal structures. BONY STRUCTURES: No acute findings. HARDWARE: CABG. OTHER: No other significant finding. IMPRESSION: Worsening atelectasis or developing pneumonia in the middle lobe. TECHNICAL DOCUMENTATION: JOB ID: [id number]
[2017-01-18] MEDS ORDERED: GUAIFENESIN 600 MG TABLET.SA PO ONE (13:15)
--- NOTE | 2017-01-18 13:58 | PROGRESS NOTE E ---
Progress Note NAME: ANDRES HENDRICKS : 1925 AGE: 89Y DATE: 01/18/2017 ROOM: 329 SUBJECTIVE: The patient today seems to be oriented to his name and to the place but is disoriented to the time, and he keeps rambling at length about issues apart from his medical healthcare. He denies any chest pain or discomfort. There is no cough or sputum production. There is no PND or orthopnea. There is no leg edema. There is no chest pain or discomfort. There is no TIA or CVA symptoms. There is no bleeding on Eliquis. OBJECTIVE: VITAL SIGNS: On examination, the patient is afebrile with a temperature of 97.6 degrees Fahrenheit, and his pulse is 96 beats per minute, irregularly irregular. Blood pressure is 135/71. Respirations are 20 per minute. O2 sat earlier on BiPAP on FIO2 of 25% was 95%, and at present the patient is on nasal cannula at 5 L per minute with an O2 sat of 96%. GENERAL: The patient is awake, alert, he is oriented x2 but disoriented to time. He is of his stated age. He is mildly obese. He is in no acute distress. HEENT: Head is atraumatic, normocephalic. Eyes - Pupils are equal, round, regular, reactive to light and accommodation. ENT is negative. NECK: Supple. There is no JVD present. Carotids are equal. There is no bruit. There is no lymphadenopathy. There are no accessory muscles of respiration in use. LUNGS: Show no evidence of congestive heart failure. There are a few crackles in the right middle lobe. HEART: S1 and S2 is heard. There is a variable S1 present. There is no S3 gallop. There is no S4 gallop. There is a systolic murmur at the left sternal border and the apex. There is no rub. ABDOMEN: Soft, nontender. There is no hepatosplenomegaly. Bowel sounds are well heard. EXTREMITIES: There is no clubbing or cyanosis. There is no evidence of cellulitis. There is evidence of mild pitting edema in the lower extremities with venous stasis dermatitis. Femorals are diminished. There are no femoral bruits. Leg pulses are diminished. There is no cyanosis or clubbing. CENTRAL NERVOUS SYSTEM: The patient is conscious, awake. As mentioned earlier, disoriented to time and keeps rambling. There is some degree of dementia in this patient. DIAGNOSTICS: The patient's chest x-ray shows developing right middle lobe pneumonia. His white count is 6900, hemoglobin is 12.5, hematocrit is 38.7, and the platelet count is 225,000. The patient's sodium is 143.1, potassium is low normal at 3.6, chloride is 105, CO2 is 26. The patient's BUN is 21, creatinine 1.22, GFR is mildly reduced at 56 which is stage IIIA. His glucose is 230. Magnesium is 1.9 and his calcium is 9. IMPRESSION: 1. ATRIAL FIBRILLATION, AT PRESENT CONTROLLED VENTRICULAR RESPONSE. The patient is on metoprolol 100 mg p.o. b.i.d. His Cardizem drip has been discontinued. The patient is also on Eliquis without any evidence of bleeding and no TIA or CVA symptoms. 2. RESPIRATORY FAILURE. 3. CONGESTIVE HEART FAILURE, AT PRESENT SEEMS TO BE COMPENSATED. Will check an echocardiogram; see report dictated later below. 4. BENIGN PROSTATIC HYPERTROPHY. 5. HYPERTENSION. 6. PNEUMONIA, RIGHT MIDDLE LOBE. 7. CONFUSION AND DISORIENTATION SEEMS TO BE MUCH BETTER BUT STILL THE PATIENT HAS AN ELEMENT OF DEMENTIA. NOTE: Thirty minutes was spent on the patient, more than 50% of the time spent in direct patient care. His medications were reviewed. Also, the patient requires moderately complex medical decision making. Of note, THE PATIENT IS DNR and his nephew is his healthcare power of medical diagnostic radiographer. I discussed with the hospitalist taking care of the patient and formulated a plan of care for the patient. Note: More than 50% of the time was spent in direct patient care. DICTATING PHYSICIAN: MORENITA SONI M.D. [id number] PHY#: [id number] ID: [id number] JOB#: [id number] ACCT: [id number] cc: >
[2017-01-18] MEDS: PIPERACILLIN SODIUM/TAZOBACTAM 4.5 GM in NORMAL SALINE 100 ML IV SCH ×2 (15:42→20:38)
--- NOTE | 2017-01-18 18:51 | XCELERA REPORT ---
[address] [address] Transthoracic Echocardiogram Report Name: ANDRES HENDRICKS Age: 89 yrs Gender: Male : 1925 Patient Status: Inpatient Patient Location: 3S\S\329\S\A Study Date: 01/18/2017 11:08 AM Height: 73 in Weight: 235 lb BSA: 2.3 m2 Procedure: A two-dimensional transthoracic echocardiogram with color flow and Doppler was performed. The study was technically difficult with many images being suboptimal in quality. Reason For Study: new afib /CHF/HTN History: new afib /CHF/HTN. Ordering Physician: TRACY SONI Performed By: Stuart Oliva Interpretation Summary The left ventricle is normal in size. There is normal left ventricular wall thickness. LV EF is 55% Left ventricular systolic function is low normal. The left ventricular wall motion is normal. The right ventricle is not well visualized secondary to technical limitations The left atrium is moderately dilated. There is no evidence of mitral valve prolapse. There is no mitral valve stenosis. There is a mild amount of mitral regurgitation The aortic valve is mildly calcified There is no aortic valve stenosis There is no LVOT obstruction. No aortic regurgitation is present. There is no tricuspid stenosis. There is a mild to moderate amount of tricuspid regurgitation There is mild pulmonary hypertension by echo RVSP s 41 mm of Hg , with RA mean of 10. The aortic root is normal size. There is no pericardial effusion. MMode/2D Measurements \T\ Calculations RVDd: 3.3 cm LVIDd: 5.2 cm FS: 21.8 % Ao root diam: 3.1 cm IVSd: 1.1 cm LVIDs: 4.0 cm EDV(Teich): 126.9 ml LVPWd: 1.1 cm ESV(Teich): 71.2 ml Ao root area: 7.7 cm2 EF(Teich): 43.9 % Doppler Measurements \T\ Calculations MV E max anahi: MV dec slope: Ao V2 max: LV V1 max P.8 cm/sec 139.1 cm/sec 3.9 mmHg MV A max anahi: 726.8 cm/sec2 Ao max PG: LV V1 max: 0.44 cm/sec MV dec time: 7.7 mmHg 98.4 cm/sec MV E/A: 285.4 0.17 sec PA V2 max: PI end-d anahi: TR max anahi: RAP systole: 82.6 cm/sec 121.9 cm/sec 285.5 cm/sec 5.0 mmHg PA max P.7 mmHg TR max P.7 mmHg RVSP(TR): 37.7 mmHg Left Ventricle The left ventricle is normal in size. There is normal left ventricular wall thickness. LV EF is 55%. Left ventricular systolic function is low normal. LV diastolic function could not be adequately assessed due to atrial fibrilation. The left ventricular wall motion is normal. There is no thrombus. Right Ventricle The right ventricle is not well visualized secondary to technical limitations. Atria Right atrium not well visualized secondary to technical limitations. The left atrium is moderately dilated. Mitral Valve There is no evidence of mitral valve prolapse. There is no vegetation seen on the mitral valve. There is no mitral valve stenosis. There is a mild amount of mitral regurgitation. Aortic Valve The aortic valve is trileaflet. The aortic valve is mildly calcified. There is no aortic valvular vegetation. There is no aortic valve stenosis. There is no LVOT obstruction. No aortic regurgitation is present. Tricuspid Valve There is no tricuspid stenosis. There is a mild to moderate amount of tricuspid regurgitation. There is mild pulmonary hypertension by echo. RVSP s 41 mm of Hg , with RA mean of 10. Pulmonic Valve There is no pulmonic valvular stenosis. There is a trace amount of pulmonic regurgitation. Great Vessels The aortic root is normal size. Effusions There is no pericardial effusion. : TRACY SONI > Tracy Soni
[2017-01-18] MEDS: ATORVASTATIN CALCIUM 80 MG TABLET PO SCH (21:11)
[2017-01-18] MEDS: GUAIFENESIN 600 MG TABLET.SA PO SCH (21:11)
[2017-01-18] MEDS: METOPROLOL TARTRATE 100 MG TABLET PO SCH (21:12)
[2017-01-19] MEDS: PIPERACILLIN SODIUM/TAZOBACTAM 4.5 GM in NORMAL SALINE 100 ML IV SCH ×4 (02:18→22:35)
[2017-01-19] MEDS: METHYLPREDNISOLONE INJ 40 MG/1 ML SDV IV SCH (05:07)
[2017-01-19 06:12] LABS: ANION GAP 14 (5-19); BLOOD UREA NITROGEN 34 mg/dL (7-20); CALCIUM 9.6 mg/dL (8.4-10.2); CARBON DIOXIDE 27 mmol/L (22-30); CHLORIDE 102 mmol/L (98-107); CREATININE RESULT 1.49 mg/dL (0.52-1.25); GLUCOSE 189 mg/dL (75-110); MAGNESIUM 2.1 mg/dL (1.6-2.3); POTASSIUM 4.1 mmol/L (3.6-5.0); SODIUM 142.5 mmol/L (137-145)
[2017-01-19 06:29] LABS: HEMATOCRIT 39.8 % (37.9-51.0); HEMOGLOBIN 12.9 g/dL (13.5-17.0); HGB HCT DIFFERENCE -1.1; MEAN CORPUSCULAR HEMOGLOBIN 29.3 pg (27.0-33.4); MEAN CORPUSCULAR HGB CONC 32.3 g/dL (32.0-36.0); MEAN CORPUSCULAR VOLUME 91 fl (80-97); RED BLOOD COUNT 4.39 10^6/uL (4.35-5.55)
[2017-01-19 06:31] LABS: WHITE BLOOD COUNT 14.2 10^3/uL (4.0-10.5)
[2017-01-19] MEDS: METOPROLOL TARTRATE 100 MG TABLET PO SCH ×2 (08:04→22:35)
[2017-01-19] MEDS: GUAIFENESIN 600 MG TABLET.SA PO SCH ×2 (08:06→22:35)
[2017-01-19] MEDS: FUROSEMIDE 20 MG TABLET PO SCH (08:06)
[2017-01-19] MEDS: TAMSULOSIN HCL 0.4 MG CAP.SR.24H PO SCH (08:06)
[2017-01-19] MEDS: ASPIRIN 81 MG TABLET, ENT COATED PO SCH (08:06)
[2017-01-19] MEDS: LISINOPRIL 5 MG TABLET PO SCH ×2 (08:07→22:35)
[2017-01-19] MEDS: APIXABAN 5 MG TABLET PO SCH ×2 (08:07→18:46)
[2017-01-19] MEDS: INSULIN LISPRO 100 UNIT/ML 3 ML VIAL SUBCUT PRN (08:07)
[2017-01-19] MEDS: DILTIAZEM HCL/D5W 125 MG/125 ML RTUINJ IV PRN (08:21)
[2017-01-19] MEDS: LEVALBUTEROL HCL NEB 1.25 MG/3 ML AMPUL NEB SCH ×2 (10:31→16:16)
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
[2017-01-19] MEDS: PREDNISONE 20 MG TABLET PO SCH (16:00)
--- NOTE | 2017-01-19 19:29 | PROGRESS NOTE E ---
Progress Note NAME: ANDRES HENDRICKS : 1925 AGE: 89Y DATE: 01/19/2017 ROOM: 329 SUBJECTIVE: The patient denies any chest pain or discomfort. The patient appears to be comfortable. Although he seems to be oriented, he rambles about the past and with frequent fight of ideas. There are no TIA or CVA symptoms. There is no chest pain or discomfort. There is no shortness of breath. There is no PND, orthopnea. There is no leg edema. The patient denies any palpitations, near syncope, or syncope. OBJECTIVE: GENERAL: On examination the patient is well built but mildly obese. He is well groomed. He is in no acute distress. VITAL SIGNS: He is afebrile with a temperature of 97.4 degrees Fahrenheit. Pulse is 96 beats per minute. Blood pressure 106/78. Respirations are 20 per minute. O2 saturations are 91% on 3 liters nasal cannula. HEAD: Atraumatic/normocephalic. EYES: Pupils are equal, round, regular, reactive to light and accommodation. EARS, NOSE, AND THROAT: Negative. NECK: Supple. There is no JVD. Carotids are equal. There is no bruit. There is no lymphadenopathy. There are no accessory muscles of respiration being used. LUNGS: Show no evidence of congestive heart failure. There are a few crackles in the right middle lobe. HEART: S1, S2 is heard. There is variable S1 present. There is no S3 gallop. There is no S4 gallop. There is a systolic murmur in the left sternal border and the apex. There is no rub. ABDOMEN: Soft, nontender. There is no hepatosplenomegaly. Bowel sounds are well heard. EXTREMITIES: There is no clubbing or cyanosis. There is no evidence of cellulitis. There is some mild trace pedal edema with chronic venous stasis dermatitis in the lower extremities. Femorals are diminished. There are no femoral bruits. Leg pulses are diminished. There is no calf tenderness. CENTRAL NERVOUS SYSTEM: The patient is conscious, awake. As mentioned earlier, the patient rambles about the past and has very frequent flight of ideas. There is no focal deficit. PSYCHIATRIC: The patient, as mentioned earlier, is not confused. He is not agitated. His judgement seems to be intact and his affect is normal, but the patient has frequent flight of ideas and rambles about the past. FLUID BALANCE: The patient's 24-hour intake is 1559 mL, output is 855 mL. DIAGNOSTIC DATA: The patient's echocardiogram done yesterday shows the left ventricle is normal in size. There is no LVH. LV ejection fraction is low normal at 59%. There is no wall motion abnormality. The left atrium is moderately dilated. There is no evidence of mitral valve prolapse. There is no mitral valve stenosis. There is mild amount of mitral regurgitation. There is aortic sclerosis without stenosis. There is no aortic regurgitation. There is mild to moderate amount of tricuspid regurgitation. There is mild pulmonary hypertension by echocardiogram. The right ventricular systolic pressure is 41 mmHg with an RA mean of 10. There is no pericardial effusion. This has been discussed with the patient. The patient's white count is 14,200, hemoglobin is 12.9, hematocrit is 39.8, and the platelet count is 278,000. The patient's sodium is 142.5, potassium 4.1, chloride 102, CO2 is 27, the patient's BUN is 34, creatinine is 1.59, GFR is reduced at 44 which is chronic kidney disease stage 3, and his magnesium is 2.1 and his calcium is 9.6. IMPRESSION: 1. ATRIAL FIBRILLATION. At present, rate seems to be okay. Continue the patient on metoprolol 100 mg p.o. b.i.d. The patient is also on Eliquis without any evidence of bleeding or TIA or CVA. Continue Eliquis. 2. RESPIRATORY FAILURE HAS RESOLVED. 3. CONGESTIVE HEART FAILURE MOST LIKELY SECONDARY TO LV DIASTOLIC DYSFUNCTION AND ATRIAL FIBRILLATION AND VOLUME OVERLOAD SECONDARY TO RENAL FAILURE. Note that the patient's LV ejection fraction is low normal. Would recommend to continue the patient's lisinopril and continue the patient's metoprolol. 4. BENIGN PROSTATIC HYPERTROPHY. 5. HYPERTENSION, WELL CONTROLLED. 6. RIGHT MIDDLE LOBE PNEUMONIA. Continue antibiotics. 7. CONFUSION/DISORIENTATION SEEMS TO BE IMPROVED. The patient has most likely a psychiatric problem with flight of ideas and rambling. RECOMMENDATIONS: In view of the patient's advanced age and the patient's renal function, would decrease the patient's Eliquis to 2.5 mg p.o. b.i.d., continue the patient on metoprolol, continue the patient on TRINIDAD inhibitor. Note 30 minutes spent on this patient with more than 50% of that time spent on direct patient cares. The patient's medications have been reviewed and adjusted. I will decrease the patient's Eliquis to 2.5 mg p.o. b.i.d. Note, this patient requires still highly complex medical decision making due to the patient's atrial fibrillation, patient's advanced age, renal failure, and the need to adjust his medications to bring down the dose of Eliquis. All of the above discussed with the patient and discussed with the other caregiving providers on the case. After discussion with other caregiving providers on the case, we formulated a plan of care for management of this patient's critical condition. Most likely the patient will be placed in a skilled or an assisted-living facility. DICTATING PHYSICIAN: MORENITA SONI M.D. [id number] PHY#: [id number] ID: [id number] JOB#: [id number] ACCT: [id number] cc:MORENITA SONI M.D. >
[2017-01-19] MEDS: ATORVASTATIN CALCIUM 80 MG TABLET PO SCH (22:35)
[2017-01-20] MEDS: LEVALBUTEROL HCL NEB 1.25 MG/3 ML AMPUL NEB SCH ×3 (00:34→16:44)
[2017-01-20] MEDS: PIPERACILLIN SODIUM/TAZOBACTAM 4.5 GM in NORMAL SALINE 100 ML IV SCH ×4 (04:10→21:43)
[2017-01-20] MEDS: FUROSEMIDE 20 MG TABLET PO SCH (09:02)
[2017-01-20] MEDS: GUAIFENESIN 600 MG TABLET.SA PO SCH ×2 (09:02→21:46)
[2017-01-20] MEDS: TAMSULOSIN HCL 0.4 MG CAP.SR.24H PO SCH (09:02)
[2017-01-20] MEDS: PREDNISONE 20 MG TABLET PO SCH (09:03)
[2017-01-20] MEDS: ASPIRIN 81 MG TABLET, ENT COATED PO SCH (09:03)
[2017-01-20] MEDS: METOPROLOL TARTRATE 100 MG TABLET PO SCH ×2 (09:03→21:44)
[2017-01-20] MEDS: LISINOPRIL 5 MG TABLET PO SCH ×2 (09:03→21:47)
[2017-01-20] MEDS ORDERED: APIXABAN 5 MG TABLET PO SCH (10:00)
[2017-01-20] MEDS: INSULIN LISPRO 100 UNIT/ML 3 ML VIAL SUBCUT PRN ×2 (12:39→18:31)
--- NOTE | 2017-01-20 13:34 | PROGRESS NOTE E ---
Progress Note NAME: ANDRES HENDRICKS : 1925 AGE: 89Y DATE: 01/20/2017 ROOM: 329 SUBJECTIVE: Note that the patient denies any chest pain or discomfort. The patient appears to be comfortable. Although he seems to be oriented, he has flight of ideas and keeps rambling about the past. He has no chest pain or discomfort. There are no TIA or CVA symptoms. There is no PND, orthopnea or leg edema. There are no palpitations, near syncope or syncope. There is no bleeding on Eliquis. OBJECTIVE: GENERAL: On examination, the patient is well built and well nourished, at present in no acute distress. He continues to be in atrial fibrillation. VITAL SIGNS: He is afebrile with a temperature of 98.4 degrees Fahrenheit. His pulse is 99 beats per minute. His blood pressure is 136/72. Respirations are 18 per minute. O2 saturations are 98% on room air. HEENT: Head is atraumatic and normocephalic. Eyes, pupils are equal, round, regular, reactive to light and accommodation. ENT negative. NECK: Supple. There is no JVD. Carotids are equal. There is no bruit. There is no lymphadenopathy. There are no accessory muscle of respirations in use. There is no goiter. LUNGS: Clear without any rales, rhonchi or wheezes, but there are some dry crackles in the right middle lobe. HEART: S1 and S2 are heard. There is variable S1. There is no S3 gallop. There is no S4 gallop. There is a systolic murmur at the left sternal border at the apex. There is no rub. ABDOMEN: Soft, nontender. There is no hepatosplenomegaly. Bowel sounds are well heard. EXTREMITIES: There is no clubbing or cyanosis. There is no evidence of cellulitis. There is no pedal edema. There is some chronic venous stasis dermatitis in the lower extremities. Femorals are diminished. Leg pulses are diminished. There are no femoral bruits. There is no calf tenderness. CENTRAL NERVOUS SYSTEM: The patient is conscious, awake without any focal deficits. PSYCHIATRIC: The patient seems to be awake, alert and oriented x3, but has flight of ideas and also rambles about the past and hence, probably has some psychiatric problem. INTAKE AND OUTPUT: The patient's 24-hour intake and output is not accurate. LABORATORY: Blood sugar 303. IMPRESSION: 1. ATRIAL FIBRILLATION WITH PRESENT VENTRICULAR RESPONSE CONTROLLED. The patient is on metoprolol 100 mg p.o. b.i.d. The patient is also on Eliquis at 2.5 mg p.o. b.i.d. 2. RESPIRATORY FAILURE, RESOLVED. 3. CONGESTIVE HEART FAILURE MOST LIKELY SECONDARY TO LV DIASTOLIC DYSFUNCTION AND ATRIAL FIBRILLATION, AT PRESENT COMPENSATED. Continue lisinopril and continue the patient's metoprolol. 4. BENIGN PROSTATIC HYPERTROPHY. 5. HYPERTENSION, WELL CONTROLLED. 6. RIGHT MIDDLE LOBE PNEUMONIA. Continue antibiotics. Seems to have improved. The patient has no cough or sputum production. 7. CONFUSION AND DISORIENTATION HAS RESOLVED. The patient has some psychiatric problems with flight of ideas and rambling about the past. In view of this, would recommend continuing the patient on metoprolol, lisinopril and Eliquis at 2.5 mg p.o. b.i.d. NOTE: 25 minutes spent with the patient with more than 50% of the time spent on direct patient care. His medications have been reviewed. I have discussed the management plan with the other caregiving providers on the case. Will sign off the case. The patient desires to follow up with me. My office number was given to the patient as he requested it. Will follow with you. DICTATING PHYSICIAN: MORENITA SONI M.D. [id number] PHY#: [id number] ID: [id number] JOB#: [id number] ACCT: [id number] cc: >
[2017-01-20] MEDS: APIXABAN 2.5 MG TABLET PO SCH (17:39)
[2017-01-20] MEDS: ATORVASTATIN CALCIUM 80 MG TABLET PO SCH (21:46)
[2017-01-20] MEDS: RISPERIDONE 1 MG TABLET PO SCH (21:49)
[2017-01-21] MEDS: LEVALBUTEROL HCL NEB 1.25 MG/3 ML AMPUL NEB SCH ×3 (00:30→16:10)
[2017-01-21] MEDS: INSULIN LISPRO 100 UNIT/ML 3 ML VIAL SUBCUT PRN ×2 (00:31→18:08)
[2017-01-21] MEDS: PIPERACILLIN SODIUM/TAZOBACTAM 4.5 GM in NORMAL SALINE 100 ML IV SCH (03:32)
[2017-01-21 05:44] LABS: ABSOLUTE LYMPHOCYTES (AUTO) 0.7 10^3/uL (0.5-4.7); ABSOLUTE MONOCYTES (AUTO) 0.8 10^3/uL (0.1-1.4); ABSOLUTE NEUT (AUTO) 9.2 10^3/uL (1.7-8.2); BASOPHILS % (AUTO) 0.1 % (0-2); HEMATOCRIT 37.8 % (37.9-51.0); HEMOGLOBIN 12.3 g/dL (13.5-17.0); HGB HCT DIFFERENCE -0.9; LYMPHOCYTES % (AUTO) 6.1 % (13-45); MEAN CORPUSCULAR HEMOGLOBIN 29.6 pg (27.0-33.4); MEAN CORPUSCULAR HGB CONC 32.7 g/dL (32.0-36.0); MEAN CORPUSCULAR VOLUME 91 fl (80-97); MONOCYTES % (AUTO) 7.9 % (3-13); RED BLOOD COUNT 4.17 10^6/uL (4.35-5.55); RED CELL DISTRIBUTION WIDTH 14.9 % (11.5-14.0); SEGMENTED NEUTROPHILS % (AUTO) 85.9 % (42-78); WHITE BLOOD COUNT 10.8 10^3/uL (4.0-10.5)
[2017-01-21 06:08] LABS: ANION GAP 10 (5-19); BLOOD UREA NITROGEN 40 mg/dL (7-20); CALCIUM 8.8 mg/dL (8.4-10.2); CARBON DIOXIDE 29 mmol/L (22-30); CHLORIDE 104 mmol/L (98-107); GLUCOSE 134 mg/dL (75-110); POTASSIUM 3.5 mmol/L (3.6-5.0); SODIUM 143.1 mmol/L (137-145)
[2017-01-21] MEDS: METOPROLOL TARTRATE 100 MG TABLET PO SCH ×2 (09:30→22:27)
[2017-01-21] MEDS: ASPIRIN 81 MG TABLET, ENT COATED PO SCH (09:30)
[2017-01-21] MEDS: FUROSEMIDE 20 MG TABLET PO SCH (09:31)
[2017-01-21] MEDS: TAMSULOSIN HCL 0.4 MG CAP.SR.24H PO SCH (09:31)
[2017-01-21] MEDS: GUAIFENESIN 600 MG TABLET.SA PO SCH ×2 (09:31→22:26)
[2017-01-21] MEDS: PREDNISONE 20 MG TABLET PO SCH (09:31)
[2017-01-21] MEDS: LISINOPRIL 5 MG TABLET PO SCH ×2 (09:32→22:29)
[2017-01-21] MEDS: APIXABAN 2.5 MG TABLET PO SCH ×2 (09:32→18:03)
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
[2017-01-21] MEDS: AMOXICILLIN TR/POT CLAVULANATE 500-125 MG TAB PO SCH ×2 (14:47→22:27)
[2017-01-21] MEDS: HALOPERIDOL LACTATE INJ 5 MG/1 ML VIAL IV PRN (18:45)
[2017-01-21] MEDS ORDERED: METOPROLOL TARTRATE PF/INJ 5 MG/5 ML SDV IV ONE (20:00)
[2017-01-21] MEDS ORDERED: LORAZEPAM INJ 2 MG/1 ML VIAL IV ONE (20:00)
[2017-01-21] MEDS: ATORVASTATIN CALCIUM 80 MG TABLET PO SCH (22:27)
[2017-01-21] MEDS: RISPERIDONE 1 MG TABLET PO SCH (22:27)
[2017-01-22] MEDS: LEVALBUTEROL HCL NEB 1.25 MG/3 ML AMPUL NEB SCH ×3 (00:14→16:25)
[2017-01-22] MEDS: AMOXICILLIN TR/POT CLAVULANATE 500-125 MG TAB PO SCH ×3 (05:44→22:18)
[2017-01-22] MEDS: INSULIN LISPRO 100 UNIT/ML 3 ML VIAL SUBCUT PRN ×3 (07:53→22:17)
[2017-01-22] MEDS: TAMSULOSIN HCL 0.4 MG CAP.SR.24H PO SCH (10:10)
[2017-01-22] MEDS: GLIPIZIDE 10 MG TABLET PO SCH ×2 (10:10→17:58)
[2017-01-22] MEDS: FUROSEMIDE 20 MG TABLET PO SCH (10:11)
[2017-01-22] MEDS: GUAIFENESIN 600 MG TABLET.SA PO SCH ×2 (10:11→22:18)
[2017-01-22] MEDS: PREDNISONE 20 MG TABLET PO SCH (10:11)
[2017-01-22] MEDS: ISOSORBIDE MONONITRATE 30 MG TAB.ER.24H PO SCH (10:12)
[2017-01-22] MEDS: LISINOPRIL 5 MG TABLET PO SCH ×2 (10:12→22:18)
[2017-01-22] MEDS: ASPIRIN 81 MG TABLET, ENT COATED PO SCH (10:12)
[2017-01-22] MEDS: METOPROLOL TARTRATE 100 MG TABLET PO SCH ×2 (10:13→22:18)
[2017-01-22] MEDS: AMLODIPINE BESYLATE 5 MG TABLET PO SCH (10:13)
[2017-01-22] MEDS ORDERED: POTASSIUM CHLORIDE 10 MEQ TABLET.SA PO ONE (10:15)
[2017-01-22] MEDS: APIXABAN 2.5 MG TABLET PO SCH ×2 (11:38→17:57)
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
[2017-01-22] MEDS: ATORVASTATIN CALCIUM 80 MG TABLET PO SCH (22:17)
[2017-01-22] MEDS: RISPERIDONE 1 MG TABLET PO SCH (22:18)
[2017-01-23] MEDS: LEVALBUTEROL HCL NEB 1.25 MG/3 ML AMPUL NEB SCH ×4 (00:25→23:33)
[2017-01-23] MEDS: AMOXICILLIN TR/POT CLAVULANATE 500-125 MG TAB PO SCH ×3 (05:41→22:49)
[2017-01-23] MEDS: METOPROLOL TARTRATE 100 MG TABLET PO SCH ×2 (10:49→22:49)
[2017-01-23] MEDS: AMLODIPINE BESYLATE 5 MG TABLET PO SCH (10:49)
[2017-01-23] MEDS: TAMSULOSIN HCL 0.4 MG CAP.SR.24H PO SCH (10:49)
[2017-01-23] MEDS: ISOSORBIDE MONONITRATE 30 MG TAB.ER.24H PO SCH (10:50)
[2017-01-23] MEDS: LISINOPRIL 5 MG TABLET PO SCH ×2 (10:50→22:49)
[2017-01-23] MEDS: GUAIFENESIN 600 MG TABLET.SA PO SCH ×2 (10:50→22:49)
[2017-01-23] MEDS: FUROSEMIDE 20 MG TABLET PO SCH (10:51)
[2017-01-23] MEDS: GLIPIZIDE 10 MG TABLET PO SCH ×2 (10:51→17:37)
[2017-01-23] MEDS: PREDNISONE 20 MG TABLET PO SCH (10:51)
[2017-01-23] MEDS: ASPIRIN 81 MG TABLET, ENT COATED PO SCH (10:52)
[2017-01-23] MEDS: APIXABAN 2.5 MG TABLET PO SCH ×2 (10:53→17:37)
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
[2017-01-23] MEDS: INSULIN LISPRO 100 UNIT/ML 3 ML VIAL SUBCUT PRN ×2 (17:36→22:49)
[2017-01-23] MEDS: ATORVASTATIN CALCIUM 80 MG TABLET PO SCH (22:49)
[2017-01-23] MEDS: RISPERIDONE 1 MG TABLET PO SCH (22:49)
[2017-01-24] MEDS: AMOXICILLIN TR/POT CLAVULANATE 500-125 MG TAB PO SCH ×3 (06:06→22:08)
[2017-01-24] MEDS: INSULIN LISPRO 100 UNIT/ML 3 ML VIAL SUBCUT PRN ×4 (08:23→23:13)
[2017-01-24] MEDS: LEVALBUTEROL HCL NEB 1.25 MG/3 ML AMPUL NEB SCH ×3 (08:55→23:55)
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
[2017-01-24] MEDS: TAMSULOSIN HCL 0.4 MG CAP.SR.24H PO SCH (10:51)
[2017-01-24] MEDS: PREDNISONE 20 MG TABLET PO SCH (10:52)
[2017-01-24] MEDS: GUAIFENESIN 600 MG TABLET.SA PO SCH ×2 (10:52→22:08)
[2017-01-24] MEDS: GLIPIZIDE 10 MG TABLET PO SCH ×2 (10:53→17:59)
[2017-01-24] MEDS: ASPIRIN 81 MG TABLET, ENT COATED PO SCH (10:53)
[2017-01-24] MEDS: METOPROLOL TARTRATE 100 MG TABLET PO SCH ×2 (10:58→22:08)
[2017-01-24] MEDS: FUROSEMIDE 20 MG TABLET PO SCH (10:58)
[2017-01-24] MEDS: ISOSORBIDE MONONITRATE 30 MG TAB.ER.24H PO SCH (10:59)
[2017-01-24] MEDS: LISINOPRIL 5 MG TABLET PO SCH ×2 (11:00→22:09)
[2017-01-24] MEDS: AMLODIPINE BESYLATE 5 MG TABLET PO SCH (11:00)
[2017-01-24] MEDS: APIXABAN 2.5 MG TABLET PO SCH ×2 (11:03→17:59)
[2017-01-24] MEDS: ATORVASTATIN CALCIUM 80 MG TABLET PO SCH (22:07)
[2017-01-24] MEDS: RISPERIDONE 1 MG TABLET PO SCH (22:09)
[2017-01-25 04:52] LABS: ABSOLUTE LYMPHOCYTES (AUTO) 0.9 10^3/uL (0.5-4.7); ABSOLUTE MONOCYTES (AUTO) 0.8 10^3/uL (0.1-1.4); ABSOLUTE NEUT (AUTO) 9.1 10^3/uL (1.7-8.2); BASOPHILS % (AUTO) 0.1 % (0-2); EOSINOPHILS % (AUTO) 0.3 % (0-6); HEMOGLOBIN 12.2 g/dL (13.5-17.0); HGB HCT DIFFERENCE -1.4; LYMPHOCYTES % (AUTO) 8.6 % (13-45); MEAN CORPUSCULAR HEMOGLOBIN 29.3 pg (27.0-33.4); MEAN CORPUSCULAR VOLUME 92 fl (80-97); MONOCYTES % (AUTO) 7.3 % (3-13); RED BLOOD COUNT 4.15 10^6/uL (4.35-5.55); RED CELL DISTRIBUTION WIDTH 14.7 % (11.5-14.0); SEGMENTED NEUTROPHILS % (AUTO) 83.7 % (42-78); WHITE BLOOD COUNT 10.9 10^3/uL (4.0-10.5)
[2017-01-25 05:09] LABS: ANION GAP 10 (5-19); BLOOD UREA NITROGEN 40 mg/dL (7-20); CALCIUM 8.7 mg/dL (8.4-10.2); CARBON DIOXIDE 26 mmol/L (22-30); CHLORIDE 105 mmol/L (98-107); CREATININE RESULT 1.21 mg/dL (0.52-1.25); GLUCOSE 123 mg/dL (75-110); POTASSIUM 3.8 mmol/L (3.6-5.0); SODIUM 140.7 mmol/L (137-145)
[2017-01-25] MEDS: AMOXICILLIN TR/POT CLAVULANATE 500-125 MG TAB PO SCH ×3 (06:40→22:25)
[2017-01-25] MEDS: LEVALBUTEROL HCL NEB 1.25 MG/3 ML AMPUL NEB SCH ×2 (07:46→15:50)
[2017-01-25] MEDS: METOPROLOL TARTRATE 100 MG TABLET PO SCH ×2 (10:20→22:26)
[2017-01-25] MEDS: TAMSULOSIN HCL 0.4 MG CAP.SR.24H PO SCH (10:20)
[2017-01-25] MEDS: FUROSEMIDE 20 MG TABLET PO SCH (10:21)
[2017-01-25] MEDS: AMLODIPINE BESYLATE 5 MG TABLET PO SCH (10:21)
[2017-01-25] MEDS: GUAIFENESIN 600 MG TABLET.SA PO SCH ×2 (10:22→22:26)
[2017-01-25] MEDS: ASPIRIN 81 MG TABLET, ENT COATED PO SCH (10:22)
[2017-01-25] MEDS: ISOSORBIDE MONONITRATE 30 MG TAB.ER.24H PO SCH (10:22)
[2017-01-25] MEDS: LISINOPRIL 5 MG TABLET PO SCH ×2 (10:23→22:26)
[2017-01-25] MEDS: PREDNISONE 20 MG TABLET PO SCH (10:23)
[2017-01-25] MEDS: GLIPIZIDE 10 MG TABLET PO SCH ×2 (10:24→18:17)
[2017-01-25] MEDS: APIXABAN 2.5 MG TABLET PO SCH ×2 (10:34→18:17)
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
[2017-01-25] MEDS: INSULIN LISPRO 100 UNIT/ML 3 ML VIAL SUBCUT PRN (16:32)
[2017-01-25] MEDS: RISPERIDONE 1 MG TABLET PO SCH (22:25)
[2017-01-25] MEDS: ATORVASTATIN CALCIUM 80 MG TABLET PO SCH (22:26)
[2017-01-26] MEDS: LEVALBUTEROL HCL NEB 1.25 MG/3 ML AMPUL NEB SCH ×4 (00:34→23:47)
[2017-01-26] MEDS: AMOXICILLIN TR/POT CLAVULANATE 500-125 MG TAB PO SCH ×3 (06:09→22:19)
[2017-01-26] MEDS: GLIPIZIDE 10 MG TABLET PO SCH ×2 (10:40→18:09)
[2017-01-26] MEDS: ISOSORBIDE MONONITRATE 30 MG TAB.ER.24H PO SCH (10:40)
[2017-01-26] MEDS: TAMSULOSIN HCL 0.4 MG CAP.SR.24H PO SCH (10:40)
[2017-01-26] MEDS: GUAIFENESIN 600 MG TABLET.SA PO SCH ×2 (10:40→22:19)
[2017-01-26] MEDS: ASPIRIN 81 MG TABLET, ENT COATED PO SCH (10:41)
[2017-01-26] MEDS: LISINOPRIL 5 MG TABLET PO SCH ×2 (10:41→22:19)
[2017-01-26] MEDS: FUROSEMIDE 20 MG TABLET PO SCH (10:41)
[2017-01-26] MEDS: METOPROLOL TARTRATE 100 MG TABLET PO SCH ×2 (10:41→22:19)
[2017-01-26] MEDS: PREDNISONE 20 MG TABLET PO SCH (10:42)
[2017-01-26] MEDS: AMLODIPINE BESYLATE 5 MG TABLET PO SCH (10:42)
[2017-01-26] MEDS: APIXABAN 2.5 MG TABLET PO SCH ×2 (10:47→18:12)
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
[2017-01-26] MEDS: INSULIN LISPRO 100 UNIT/ML 3 ML VIAL SUBCUT PRN ×3 (11:39→22:30)
[2017-01-26] MEDS: ATORVASTATIN CALCIUM 80 MG TABLET PO SCH (22:19)
[2017-01-26] MEDS: RISPERIDONE 1 MG TABLET PO SCH (22:19)
[2017-01-26] MEDS: HALOPERIDOL LACTATE INJ 5 MG/1 ML VIAL IV PRN (22:20)
[2017-01-27] MEDS: AMOXICILLIN TR/POT CLAVULANATE 500-125 MG TAB PO SCH ×3 (06:48→23:04)
[2017-01-27] MEDS: LEVALBUTEROL HCL NEB 1.25 MG/3 ML AMPUL NEB SCH ×3 (09:33→23:43)
[2017-01-27] MEDS: PREDNISONE 20 MG TABLET PO SCH (10:23)
[2017-01-27] MEDS: DILTIAZEM HCL 120 MG CAP.SR.24H PO SCH (10:24)
[2017-01-27] MEDS: GLIPIZIDE 10 MG TABLET PO SCH ×2 (10:26→17:32)
[2017-01-27] MEDS: ISOSORBIDE MONONITRATE 30 MG TAB.ER.24H PO SCH (10:26)
[2017-01-27] MEDS: FUROSEMIDE 20 MG TABLET PO SCH ×2 (10:27→17:33)
[2017-01-27] MEDS: METOPROLOL TARTRATE 100 MG TABLET PO SCH ×2 (10:27→23:09)
[2017-01-27] MEDS: GUAIFENESIN 600 MG TABLET.SA PO SCH ×2 (10:28→23:05)
[2017-01-27] MEDS: LISINOPRIL 5 MG TABLET PO SCH ×2 (10:28→23:09)
[2017-01-27] MEDS: ASPIRIN 81 MG TABLET, ENT COATED PO SCH (10:28)
[2017-01-27] MEDS: TAMSULOSIN HCL 0.4 MG CAP.SR.24H PO SCH (10:29)
[2017-01-27] MEDS: APIXABAN 2.5 MG TABLET PO SCH ×2 (10:29→17:33)
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
[2017-01-27] MEDS ORDERED: POTASSIUM CHLORIDE 10 MEQ TABLET.SA PO SCH (12:00)
[2017-01-27] MEDS: INSULIN LISPRO 100 UNIT/ML 3 ML VIAL SUBCUT PRN ×3 (12:44→23:07)
[2017-01-27] MEDS: ATORVASTATIN CALCIUM 80 MG TABLET PO SCH (23:06)
[2017-01-27] MEDS: RISPERIDONE 1 MG TABLET PO SCH (23:06)
[2017-01-28] MEDS: AMOXICILLIN TR/POT CLAVULANATE 500-125 MG TAB PO SCH (05:51)
[2017-01-28 06:51] LABS: ABSOLUTE LYMPHOCYTES (AUTO) 0.9 10^3/uL (0.5-4.7); ABSOLUTE NEUT (AUTO) 10.3 10^3/uL (1.7-8.2); BASOPHILS % (AUTO) 0.1 % (0-2); EOSINOPHILS % (AUTO) 0.1 % (0-6); HEMOGLOBIN 11.9 g/dL (13.5-17.0); HGB HCT DIFFERENCE -1.3; LYMPHOCYTES % (AUTO) 7.2 % (13-45); MEAN CORPUSCULAR HGB CONC 32.1 g/dL (32.0-36.0); MEAN CORPUSCULAR VOLUME 90 fl (80-97); RED BLOOD COUNT 4.11 10^6/uL (4.35-5.55); RED CELL DISTRIBUTION WIDTH 15.1 % (11.5-14.0); SEGMENTED NEUTROPHILS % (AUTO) 84.6 % (42-78); WHITE BLOOD COUNT 12.2 10^3/uL (4.0-10.5)
[2017-01-28 07:07] LABS: ANION GAP 10 (5-19); BLOOD UREA NITROGEN 35 mg/dL (7-20); CALCIUM 8.9 mg/dL (8.4-10.2); CARBON DIOXIDE 26 mmol/L (22-30); CHLORIDE 103 mmol/L (98-107); CREATININE RESULT 1.09 mg/dL (0.52-1.25); GLUCOSE 207 mg/dL (75-110); POTASSIUM 4.1 mmol/L (3.6-5.0)
[2017-01-28] MEDS: INSULIN LISPRO 100 UNIT/ML 3 ML VIAL SUBCUT PRN ×4 (08:07→23:56)
[2017-01-28] MEDS: LEVALBUTEROL HCL NEB 1.25 MG/3 ML AMPUL NEB SCH (08:44)
[2017-01-28] MEDS: DILTIAZEM HCL 120 MG CAP.SR.24H PO SCH (10:21)
[2017-01-28] MEDS: PREDNISONE 20 MG TABLET PO SCH (10:21)
[2017-01-28] MEDS: GLIPIZIDE 10 MG TABLET PO SCH ×2 (10:21→18:37)
[2017-01-28] MEDS: GUAIFENESIN 600 MG TABLET.SA PO SCH ×2 (10:22→22:44)
[2017-01-28] MEDS: APIXABAN 2.5 MG TABLET PO SCH ×2 (10:22→18:37)
[2017-01-28] MEDS: TAMSULOSIN HCL 0.4 MG CAP.SR.24H PO SCH (10:23)
[2017-01-28] MEDS: ISOSORBIDE MONONITRATE 30 MG TAB.ER.24H PO SCH (10:23)
[2017-01-28] MEDS: METOPROLOL TARTRATE 100 MG TABLET PO SCH ×2 (10:23→22:46)
[2017-01-28] MEDS: LISINOPRIL 5 MG TABLET PO SCH ×2 (10:24→22:45)
[2017-01-28] MEDS: FUROSEMIDE 20 MG TABLET PO SCH ×2 (10:24→18:37)
[2017-01-28] MEDS: ASPIRIN 81 MG TABLET, ENT COATED PO SCH (10:24)
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
[2017-01-28] MEDS ORDERED: HALOPERIDOL LACTATE INJ 5 MG/1 ML VIAL IV PRN (11:29)
[2017-01-28] MEDS: POTASSIUM CHLORIDE 10 MEQ TABLET.SA PO SCH (12:35)
[2017-01-28] MEDS: ATORVASTATIN CALCIUM 80 MG TABLET PO SCH (22:44)
[2017-01-28] MEDS: RISPERIDONE 1 MG TABLET PO SCH (22:45)
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
[2017-01-29] MEDS: ISOSORBIDE MONONITRATE 60 MG TAB.ER.24H PO SCH (10:21)
[2017-01-29] MEDS: DILTIAZEM HCL 120 MG CAP.SR.24H PO SCH (10:21)
[2017-01-29] MEDS: PREDNISONE 20 MG TABLET PO SCH (10:22)
[2017-01-29] MEDS: FUROSEMIDE 20 MG TABLET PO SCH ×2 (10:22→17:17)
[2017-01-29] MEDS: GLIPIZIDE 10 MG TABLET PO SCH ×2 (10:22→17:16)
[2017-01-29] MEDS: METOPROLOL TARTRATE 100 MG TABLET PO SCH ×2 (10:22→21:28)
[2017-01-29] MEDS: ASPIRIN 81 MG TABLET, ENT COATED PO SCH (10:23)
[2017-01-29] MEDS: TAMSULOSIN HCL 0.4 MG CAP.SR.24H PO SCH (10:23)
[2017-01-29] MEDS: LISINOPRIL 5 MG TABLET PO SCH ×2 (10:23→21:28)
[2017-01-29] MEDS: GUAIFENESIN 600 MG TABLET.SA PO SCH ×2 (10:25→21:29)
[2017-01-29] MEDS: APIXABAN 2.5 MG TABLET PO SCH ×2 (10:26→17:18)
[2017-01-29] MEDS: POTASSIUM CHLORIDE 10 MEQ TABLET.SA PO SCH (11:52)
[2017-01-29] MEDS: INSULIN LISPRO 100 UNIT/ML 3 ML VIAL SUBCUT PRN ×2 (11:52→23:26)
[2017-01-29] MEDS: ATORVASTATIN CALCIUM 80 MG TABLET PO SCH (21:31)
[2017-01-30] MEDS: RISPERIDONE 1 MG TABLET PO SCH ×2 (00:03→22:09)
[2017-01-30] MEDS: DILTIAZEM HCL 120 MG CAP.SR.24H PO SCH (09:38)
[2017-01-30] MEDS: FUROSEMIDE 20 MG TABLET PO SCH ×2 (09:39→18:40)
[2017-01-30] MEDS: METOPROLOL TARTRATE 100 MG TABLET PO SCH ×2 (09:39→22:05)
[2017-01-30] MEDS: ASPIRIN 81 MG TABLET, ENT COATED PO SCH (09:39)
[2017-01-30] MEDS: PREDNISONE 20 MG TABLET PO SCH (09:39)
[2017-01-30] MEDS: LISINOPRIL 5 MG TABLET PO SCH ×2 (09:40→22:06)
[2017-01-30] MEDS: GLIPIZIDE 10 MG TABLET PO SCH ×2 (09:40→18:40)
[2017-01-30] MEDS: TAMSULOSIN HCL 0.4 MG CAP.SR.24H PO SCH (09:40)
[2017-01-30] MEDS: GUAIFENESIN 600 MG TABLET.SA PO SCH ×2 (09:40→22:06)
[2017-01-30] MEDS: ISOSORBIDE MONONITRATE 60 MG TAB.ER.24H PO SCH (09:41)
[2017-01-30] MEDS: APIXABAN 2.5 MG TABLET PO SCH ×2 (09:43→18:41)
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
[2017-01-30] MEDS: POTASSIUM CHLORIDE 10 MEQ TABLET.SA PO SCH (14:26)
[2017-01-30] MEDS: ATORVASTATIN CALCIUM 80 MG TABLET PO SCH (22:05)
[2017-01-30] MEDS: INSULIN LISPRO 100 UNIT/ML 3 ML VIAL SUBCUT PRN (22:10)
[2017-01-31] MEDS: FUROSEMIDE 20 MG TABLET PO SCH ×2 (09:38→17:47)
[2017-01-31] MEDS: GUAIFENESIN 600 MG TABLET.SA PO SCH ×2 (09:38→21:32)
[2017-01-31] MEDS: ASPIRIN 81 MG TABLET, ENT COATED PO SCH (09:38)
[2017-01-31] MEDS: TAMSULOSIN HCL 0.4 MG CAP.SR.24H PO SCH (09:39)
[2017-01-31] MEDS: GLIPIZIDE 10 MG TABLET PO SCH ×2 (09:39→17:47)
[2017-01-31] MEDS: METOPROLOL TARTRATE 100 MG TABLET PO SCH ×2 (09:39→21:32)
[2017-01-31] MEDS: PREDNISONE 20 MG TABLET PO SCH (09:39)
[2017-01-31] MEDS: DILTIAZEM HCL 120 MG CAP.SR.24H PO SCH (09:39)
[2017-01-31] MEDS: ISOSORBIDE MONONITRATE 60 MG TAB.ER.24H PO SCH (09:40)
[2017-01-31] MEDS: LISINOPRIL 5 MG TABLET PO SCH ×2 (09:40→21:32)
[2017-01-31] MEDS: APIXABAN 2.5 MG TABLET PO SCH ×2 (09:44→17:48)
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
[2017-01-31] MEDS: POTASSIUM CHLORIDE 10 MEQ TABLET.SA PO SCH (13:53)
[2017-01-31] MEDS: RISPERIDONE 1 MG TABLET PO SCH (21:32)
[2017-01-31] MEDS: ATORVASTATIN CALCIUM 80 MG TABLET PO SCH (21:32)
[2017-01-31] MEDS: INSULIN LISPRO 100 UNIT/ML 3 ML VIAL SUBCUT PRN (21:51)
[2017-02-01 06:12] LABS: ANION GAP 7 (5-19); BLOOD UREA NITROGEN 44 mg/dL (7-20); CARBON DIOXIDE 28 mmol/L (22-30); CHLORIDE 104 mmol/L (98-107); CREATININE RESULT 1.33 mg/dL (0.52-1.25); GLUCOSE 137 mg/dL (75-110); SODIUM 139.4 mmol/L (137-145)
[2017-02-01] MEDS: GLIPIZIDE 10 MG TABLET PO SCH ×2 (09:21→17:05)
[2017-02-01] MEDS: GUAIFENESIN 600 MG TABLET.SA PO SCH ×2 (09:22→21:40)
[2017-02-01] MEDS: LISINOPRIL 5 MG TABLET PO SCH ×2 (09:22→21:41)
[2017-02-01] MEDS: APIXABAN 2.5 MG TABLET PO SCH ×2 (09:23→17:05)
[2017-02-01] MEDS: METOPROLOL TARTRATE 100 MG TABLET PO SCH ×2 (09:23→21:41)
[2017-02-01] MEDS: DILTIAZEM HCL 120 MG CAP.SR.24H PO SCH (09:23)
[2017-02-01] MEDS: ISOSORBIDE MONONITRATE 60 MG TAB.ER.24H PO SCH (09:23)
[2017-02-01] MEDS: TAMSULOSIN HCL 0.4 MG CAP.SR.24H PO SCH (09:23)
[2017-02-01] MEDS: ASPIRIN 81 MG TABLET, ENT COATED PO SCH (09:23)
[2017-02-01] MEDS: PREDNISONE 20 MG TABLET PO SCH (09:23)
[2017-02-01] MEDS ORDERED: FUROSEMIDE 20 MG TABLET PO SCH (09:30)
[2017-02-01] MEDS: FUROSEMIDE 40 MG TABLET PO SCH ×2 (10:11→17:05)
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
[2017-02-01] MEDS: POTASSIUM CHLORIDE 10 MEQ TABLET.SA PO SCH (13:58)
[2017-02-01] MEDS: INSULIN LISPRO 100 UNIT/ML 3 ML VIAL SUBCUT PRN ×2 (16:04→21:47)
[2017-02-01] MEDS: ATORVASTATIN CALCIUM 80 MG TABLET PO SCH (21:40)
[2017-02-01] MEDS: RISPERIDONE 1 MG TABLET PO SCH (21:41)
[2017-02-02 07:31] LABS: ANION GAP 10 (5-19); BLOOD UREA NITROGEN 45 mg/dL (7-20); CALCIUM 9.2 mg/dL (8.4-10.2); CARBON DIOXIDE 28 mmol/L (22-30); CHLORIDE 102 mmol/L (98-107); GLUCOSE 156 mg/dL (75-110); MAGNESIUM 2.1 mg/dL (1.6-2.3); POTASSIUM 4.3 mmol/L (3.6-5.0); SODIUM 140.2 mmol/L (137-145)
[2017-02-02] MEDS: ASPIRIN 81 MG TABLET, ENT COATED PO SCH (09:53)
[2017-02-02] MEDS: FUROSEMIDE 40 MG TABLET PO SCH ×2 (09:53→17:11)
[2017-02-02] MEDS: PREDNISONE 20 MG TABLET PO SCH (09:55)
[2017-02-02] MEDS: TAMSULOSIN HCL 0.4 MG CAP.SR.24H PO SCH (09:55)
[2017-02-02] MEDS: LISINOPRIL 5 MG TABLET PO SCH ×2 (09:55→23:37)
[2017-02-02] MEDS: DILTIAZEM HCL 120 MG CAP.SR.24H PO SCH (09:55)
[2017-02-02] MEDS: METOPROLOL TARTRATE 100 MG TABLET PO SCH ×2 (09:55→23:37)
[2017-02-02] MEDS: GLIPIZIDE 10 MG TABLET PO SCH ×2 (09:55→17:11)
[2017-02-02] MEDS: GUAIFENESIN 600 MG TABLET.SA PO SCH ×2 (09:56→21:44)
[2017-02-02] MEDS: APIXABAN 2.5 MG TABLET PO SCH ×2 (09:56→17:11)
[2017-02-02] MEDS: ISOSORBIDE MONONITRATE 60 MG TAB.ER.24H PO SCH (09:56)
[2017-02-02] MEDS: POTASSIUM CHLORIDE 10 MEQ TABLET.SA PO SCH (12:11)
--- NOTE | 2017-02-02 15:35 | PDOC PROGRESS REPORT ---
Subjective Progress Note for:: 02/02/17 Physical Exam Vital Signs: Temp Pulse Resp BP Pulse Ox 97.8 F 85 16 110/74 96 02/02/17 12:00 02/02/17 12:00 02/02/17 12:00 02/02/17 12:00 02/02/17 12:00 Intake & Output 02/01/17 02/02/17 02/03/17 06:59 06:59 06:59 Intake Total 1486 1380 Balance 1486 1380 GENERAL: This is a well-developed well-nourished appearing white male resting on the side of his bed eating lunch. HEART: Regular rate and rhythm. No murmurs, rubs or gallops. LUNGS: Clear to auscultation bilaterally with equal rise and fall of the chest. ABDOMEN: Soft, nontender, nondistended with normoactive bowel sounds EXTREMETIES: No clubbing, cyanosis or edema. 2+ peripheral pulses bilaterally. NEURO: Awake, alert and oriented 3. Cranial nerves II through XII are grossly intact. PSYCH: Patient is quite animated and tangential in his conversation. Results Laboratory Results: 01/28/17 06:39 02/02/17 06:49 02/02/17 06:49 Sodium 140.2 Potassium 4.3 Chloride 102 Carbon Dioxide 28 Anion Gap 10 BUN 45 H Creatinine 1.30 H Est GFR ( Amer) > 60 Est GFR (Non-Af Amer) 52 L Glucose 156 H Calcium 9.2 Magnesium 2.1 01/16/17 05:20 Troponin I 0.023 Impressions: Head CT 01/15/17 17:47 IMPRESSION: 1. Involutional changes of aging chronic microvascular ischemic disease. 2. A limited acute left parietal infarct cannot be ruled out. Head MRI 01/16/17 00:00 IMPRESSION: 1. Chronic changes. No acute infarct identified. Lung Scan-VQ NM 01/16/17 01:37 IMPRESSION: NEGATIVE FOR PULMONARY EMBOLI. Chest X-Ray 01/18/17 00:00 IMPRESSION: Worsening atelectasis or developing pneumonia in the middle lobe. Assessment & Plan - Diagnosis (1) Community acquired pneumonia Is this a current diagnosis for this admission?: YesPlan: Status post 7 day antibiotic treatment. (2) New onset atrial fibrillation Is this a current diagnosis for this admission?: Yes (3) Vascular dementia Qualifiers: Dementia behavioral disturbance: with behavioral disturbance Qualified Code(s): F01.51 - Vascular dementia with behavioral disturbance Is this a current diagnosis for this admission?: YesPlan: Stable. (4) CKD (chronic kidney disease), stage III Is this a current diagnosis for this admission?: YesPlan: Stable. (5) DM w/o complication type II Qualifiers: Diabetes mellitus chcf insulin use: with chcf use Qualified Code(s): E11.9 - Type 2 diabetes mellitus without complications Is this a current diagnosis for this admission?: YesPlan: Current medications. (6) Dyslipidemia Is this a current diagnosis for this admission?: Yes (7) Essential hypertension Is this a current diagnosis for this admission?: YesPlan: Current medications. - Time Time Spent with patient: 25-34 minutes - Inpatient Certification Medical Necessity: Other - Remains hospitalized as he waits for placement - Plan Summary Plan Summary: Remains hospitalized because he is waiting for SNF placement. Apparently he will have to have prior approval through Medicare to go to facility. This could take upwards of 60 days.
[2017-02-02] MEDS: INSULIN LISPRO 100 UNIT/ML 3 ML VIAL SUBCUT PRN ×2 (16:09→21:44)
[2017-02-02] MEDS: ATORVASTATIN CALCIUM 80 MG TABLET PO SCH (21:44)
[2017-02-02] MEDS: RISPERIDONE 1 MG TABLET PO SCH (21:44)
[2017-02-03] MEDS: LISINOPRIL 5 MG TABLET PO SCH ×2 (11:19→23:44)
[2017-02-03] MEDS: GUAIFENESIN 600 MG TABLET.SA PO SCH ×2 (11:20→22:09)
[2017-02-03] MEDS: DILTIAZEM HCL 120 MG CAP.SR.24H PO SCH (11:20)
[2017-02-03] MEDS: TAMSULOSIN HCL 0.4 MG CAP.SR.24H PO SCH (11:21)
[2017-02-03] MEDS: ASPIRIN 81 MG TABLET, ENT COATED PO SCH (11:21)
[2017-02-03] MEDS: PREDNISONE 20 MG TABLET PO SCH (11:22)
[2017-02-03] MEDS: FUROSEMIDE 40 MG TABLET PO SCH ×2 (11:22→18:22)
[2017-02-03] MEDS: METOPROLOL TARTRATE 100 MG TABLET PO SCH ×2 (11:23→23:44)
[2017-02-03] MEDS: ISOSORBIDE MONONITRATE 60 MG TAB.ER.24H PO SCH (11:23)
[2017-02-03] MEDS: GLIPIZIDE 10 MG TABLET PO SCH ×2 (11:23→18:24)
[2017-02-03] MEDS: APIXABAN 2.5 MG TABLET PO SCH ×2 (11:25→18:25)
[2017-02-03] MEDS: POTASSIUM CHLORIDE 10 MEQ TABLET.SA PO SCH (11:27)
--- NOTE | 2017-02-03 14:04 | PDOC PROGRESS REPORT ---
Subjective Progress Note for:: 02/03/17 Subjective:: This is a follow-up visit for atrial fibrillation patient. The patient is awaiting placement. He has no complaints today he denies any chest pain or shortness of breath. Physical Exam Vital Signs: Temp Pulse Resp BP Pulse Ox 97.5 F 74 12 95/63 L 100 02/03/17 12:00 02/03/17 12:00 02/03/17 12:00 02/03/17 12:00 02/03/17 12:00 Intake & Output 02/02/17 02/03/17 02/04/17 06:59 06:59 06:59 Intake Total 1380 960 Balance 1380 960 GENERAL: Well-developed, well-nourished appearing elderly white female resting in her recliner currently in no acute distress. HEART: Regular rate and rhythm. No murmurs, rubs or gallops. LUNGS: Clear to auscultation bilaterally with equal rise and fall of the chest. ABDOMEN: Soft, nontender, nondistended with normoactive bowel sounds EXTREMETIES: No clubbing, cyanosis or edema. 2+ peripheral pulses bilaterally. NEURO: Awake, alert and oriented 3. Cranial nerves II through XII are grossly intact. Results Laboratory Results: 01/28/17 06:39 02/02/17 06:49 01/16/17 05:20 Troponin I 0.023 Impressions: Head CT 01/15/17 17:47 IMPRESSION: 1. Involutional changes of aging chronic microvascular ischemic disease. 2. A limited acute left parietal infarct cannot be ruled out. Head MRI 01/16/17 00:00 IMPRESSION: 1. Chronic changes. No acute infarct identified. Lung Scan-VQ NM 01/16/17 01:37 IMPRESSION: NEGATIVE FOR PULMONARY EMBOLI. Chest X-Ray 01/18/17 00:00 IMPRESSION: Worsening atelectasis or developing pneumonia in the middle lobe. Assessment & Plan - Diagnosis (1) Community acquired pneumonia Is this a current diagnosis for this admission?: YesPlan: Status post 7 day antibiotic treatment. (2) New onset atrial fibrillation Is this a current diagnosis for this admission?: Yes (3) Vascular dementia Qualifiers: Dementia behavioral disturbance: with behavioral disturbance Qualified Code(s): F01.51 - Vascular dementia with behavioral disturbance Is this a current diagnosis for this admission?: YesPlan: Stable. (4) CKD (chronic kidney disease), stage III Is this a current diagnosis for this admission?: YesPlan: Stable. (5) DM w/o complication type II Qualifiers: Diabetes mellitus ad terminal makeup operator insulin use: with group home use Qualified Code(s): E11.9 - Type 2 diabetes mellitus without complications Is this a current diagnosis for this admission?: YesPlan: Current medications. (6) Dyslipidemia Is this a current diagnosis for this admission?: Yes (7) Essential hypertension Is this a current diagnosis for this admission?: YesPlan: Current medications. - Time Time Spent with patient: 15-24 minutes - Inpatient Certification Medical Necessity: Need Close Monitoring Due to Risk of Patient Decompensation
[2017-02-03] MEDS: INSULIN LISPRO 100 UNIT/ML 3 ML VIAL SUBCUT PRN ×2 (18:23→22:09)
[2017-02-03] MEDS: ATORVASTATIN CALCIUM 80 MG TABLET PO SCH (22:09)
[2017-02-03] MEDS: RISPERIDONE 1 MG TABLET PO SCH (22:09)
[2017-02-04] MEDS: GUAIFENESIN 600 MG TABLET.SA PO SCH ×2 (09:51→21:37)
[2017-02-04] MEDS: ASPIRIN 81 MG TABLET, ENT COATED PO SCH (09:51)
[2017-02-04] MEDS: TAMSULOSIN HCL 0.4 MG CAP.SR.24H PO SCH (09:52)
[2017-02-04] MEDS: FUROSEMIDE 40 MG TABLET PO SCH ×2 (09:52→17:03)
[2017-02-04] MEDS: GLIPIZIDE 10 MG TABLET PO SCH ×2 (09:53→17:03)
[2017-02-04] MEDS: DILTIAZEM HCL 120 MG CAP.SR.24H PO SCH (09:54)
[2017-02-04] MEDS: PREDNISONE 20 MG TABLET PO SCH (09:54)
[2017-02-04] MEDS: APIXABAN 2.5 MG TABLET PO SCH ×2 (09:58→17:02)
[2017-02-04] MEDS: METOPROLOL TARTRATE 100 MG TABLET PO SCH ×2 (09:59→21:38)
[2017-02-04] MEDS: LISINOPRIL 5 MG TABLET PO SCH ×2 (09:59→21:38)
[2017-02-04] MEDS: ISOSORBIDE MONONITRATE 60 MG TAB.ER.24H PO SCH (09:59)
[2017-02-04] MEDS: POTASSIUM CHLORIDE 10 MEQ TABLET.SA PO SCH (12:55)
--- NOTE | 2017-02-04 13:06 | PDOC PROGRESS REPORT ---
Subjective Progress Note for:: 02/04/17 Subjective:: This is a follow-up visit for atrial fibrillation patient. The patient is awaiting placement. He has no complaints today he denies any chest pain or shortness of breath. Physical Exam Vital Signs: Temp Pulse Resp BP Pulse Ox 98.1 F 88 18 111/64 99 02/04/17 12:00 02/04/17 12:00 02/04/17 12:00 02/04/17 12:00 02/04/17 12:00 Intake & Output 02/03/17 02/04/17 02/05/17 06:59 06:59 06:59 Intake Total 960 656 Balance 960 656 GENERAL: Well-developed, well-nourished appearing elderly white female resting in her recliner currently in no acute distress. HEART: Regular rate and rhythm. No murmurs, rubs or gallops. LUNGS: Clear to auscultation bilaterally with equal rise and fall of the chest. ABDOMEN: Soft, nontender, nondistended with normoactive bowel sounds EXTREMETIES: No clubbing, cyanosis or edema. 2+ peripheral pulses bilaterally. NEURO: Awake, alert and oriented 3. Cranial nerves II through XII are grossly intact. Results Laboratory Results: 01/28/17 06:39 02/02/17 06:49 01/16/17 05:20 Troponin I 0.023 Impressions: Head CT 01/15/17 17:47 IMPRESSION: 1. Involutional changes of aging chronic microvascular ischemic disease. 2. A limited acute left parietal infarct cannot be ruled out. Head MRI 01/16/17 00:00 IMPRESSION: 1. Chronic changes. No acute infarct identified. Lung Scan-VQ NM 01/16/17 01:37 IMPRESSION: NEGATIVE FOR PULMONARY EMBOLI. Chest X-Ray 01/18/17 00:00 IMPRESSION: Worsening atelectasis or developing pneumonia in the middle lobe. Assessment & Plan - Diagnosis (1) Community acquired pneumonia Is this a current diagnosis for this admission?: YesPlan: Status post 7 day antibiotic treatment. (2) New onset atrial fibrillation Is this a current diagnosis for this admission?: YesPlan: stable (3) Vascular dementia Qualifiers: Dementia behavioral disturbance: with behavioral disturbance Qualified Code(s): F01.51 - Vascular dementia with behavioral disturbance Is this a current diagnosis for this admission?: YesPlan: Stable. (4) CKD (chronic kidney disease), stage III Is this a current diagnosis for this admission?: YesPlan: Stable. (5) DM w/o complication type II Qualifiers: Diabetes mellitus exterminator helper termite insulin use: with exterminator helper termite use Qualified Code(s): E11.9 - Type 2 diabetes mellitus without complications Is this a current diagnosis for this admission?: YesPlan: Current medications. (6) Dyslipidemia Is this a current diagnosis for this admission?: YesPlan: Continue atorvastatin (7) Essential hypertension Is this a current diagnosis for this admission?: YesPlan: Current medications. - Time Time Spent with patient: 15-24 minutes Anticipated discharge: SNF Within: when bed available - Inpatient Certification Medical Necessity: Other
[2017-02-04] MEDS: INSULIN LISPRO 100 UNIT/ML 3 ML VIAL SUBCUT PRN ×2 (16:49→21:36)
[2017-02-04] MEDS: ATORVASTATIN CALCIUM 80 MG TABLET PO SCH (21:36)
[2017-02-04] MEDS: RISPERIDONE 1 MG TABLET PO SCH (21:37)
[2017-02-05] MEDS: PREDNISONE 20 MG TABLET PO SCH (09:25)
[2017-02-05] MEDS: GUAIFENESIN 600 MG TABLET.SA PO SCH ×2 (09:25→21:11)
[2017-02-05] MEDS: GLIPIZIDE 10 MG TABLET PO SCH ×2 (09:26→17:59)
[2017-02-05] MEDS: ASPIRIN 81 MG TABLET, ENT COATED PO SCH (09:26)
[2017-02-05] MEDS: DILTIAZEM HCL 120 MG CAP.SR.24H PO SCH (09:26)
[2017-02-05] MEDS: TAMSULOSIN HCL 0.4 MG CAP.SR.24H PO SCH (09:26)
[2017-02-05] MEDS: LISINOPRIL 5 MG TABLET PO SCH ×2 (09:27→21:12)
[2017-02-05] MEDS: FUROSEMIDE 40 MG TABLET PO SCH ×2 (09:27→18:01)
[2017-02-05] MEDS: ISOSORBIDE MONONITRATE 60 MG TAB.ER.24H PO SCH (09:27)
[2017-02-05] MEDS: APIXABAN 2.5 MG TABLET PO SCH ×2 (09:28→17:59)
[2017-02-05] MEDS: METOPROLOL TARTRATE 100 MG TABLET PO SCH ×2 (09:28→21:10)
[2017-02-05] MEDS: INSULIN LISPRO 100 UNIT/ML 3 ML VIAL SUBCUT PRN ×3 (12:43→22:05)
[2017-02-05] MEDS: POTASSIUM CHLORIDE 10 MEQ TABLET.SA PO SCH (12:43)
--- NOTE | 2017-02-05 15:47 | PDOC PROGRESS REPORT ---
Subjective Progress Note for:: 02/05/17 Subjective:: This is a follow-up visit for atrial fibrillation patient. The patient is awaiting placement. He has no complaints today he denies any chest pain or shortness of breath. He was on the telephone when I came by this morning and wanted salt with out phone numbers to the room. Physical Exam Vital Signs: Temp Pulse Resp BP Pulse Ox 97.8 F 86 20 103/70 97 02/05/17 12:00 02/05/17 12:00 02/05/17 12:00 02/05/17 12:00 02/05/17 12:00 Intake & Output 02/04/17 02/05/17 02/06/17 06:59 06:59 06:59 Intake Total 656 1490 Balance 656 1490 General: A well-developed well-nourished appearing white male sitting in his wheelchair talking on the phone. Neuro: The patient is awake alert. He is not completely oriented. He is speaking filled out leave that he can be heard out into the hallway. He is quite animated. He is still quite tangential in his conversation. Cranial nerves are grossly intact. Results Laboratory Results: 01/28/17 06:39 02/02/17 06:49 01/16/17 05:20 Troponin I 0.023 Impressions: Head CT 01/15/17 17:47 IMPRESSION: 1. Involutional changes of aging chronic microvascular ischemic disease. 2. A limited acute left parietal infarct cannot be ruled out. Head MRI 01/16/17 00:00 IMPRESSION: 1. Chronic changes. No acute infarct identified. Lung Scan-VQ NM 01/16/17 01:37 IMPRESSION: NEGATIVE FOR PULMONARY EMBOLI. Chest X-Ray 01/18/17 00:00 IMPRESSION: Worsening atelectasis or developing pneumonia in the middle lobe. Assessment & Plan - Diagnosis (1) Community acquired pneumonia Is this a current diagnosis for this admission?: YesPlan: Status post 7 day antibiotic treatment. (2) New onset atrial fibrillation Is this a current diagnosis for this admission?: YesPlan: stable (3) Vascular dementia Qualifiers: Dementia behavioral disturbance: with behavioral disturbance Qualified Code(s): F01.51 - Vascular dementia with behavioral disturbance Is this a current diagnosis for this admission?: YesPlan: Stable. (4) CKD (chronic kidney disease), stage III Is this a current diagnosis for this admission?: YesPlan: Stable. (5) DM w/o complication type II Qualifiers: Diabetes mellitus mcfp insulin use: with mcfp use Qualified Code(s): E11.9 - Type 2 diabetes mellitus without complications Is this a current diagnosis for this admission?: YesPlan: Current medications. (6) Dyslipidemia Is this a current diagnosis for this admission?: YesPlan: Continue atorvastatin (7) Essential hypertension Is this a current diagnosis for this admission?: YesPlan: Current medications. - Time Time Spent with patient: Less than 15 minutes - Plan Summary Plan Summary: Awaiting placement. I spoke with discharge planning he says he will likely be able to be discharged from the hospital on Wednesday. He will need to start participating with physical therapy again in order to go through the [facility] on Wednesday. Orders for PT evaluation have been placed.
[2017-02-05] MEDS: ATORVASTATIN CALCIUM 80 MG TABLET PO SCH (21:10)
[2017-02-05] MEDS: RISPERIDONE 1 MG TABLET PO SCH (21:12)
[2017-02-06] MEDS: FUROSEMIDE 40 MG TABLET PO SCH ×2 (10:04→17:41)
[2017-02-06] MEDS: GLIPIZIDE 10 MG TABLET PO SCH ×2 (10:04→17:41)
[2017-02-06] MEDS: GUAIFENESIN 600 MG TABLET.SA PO SCH ×2 (10:04→21:19)
[2017-02-06] MEDS: DILTIAZEM HCL 120 MG CAP.SR.24H PO SCH (10:04)
[2017-02-06] MEDS: ASPIRIN 81 MG TABLET, ENT COATED PO SCH (10:04)
[2017-02-06] MEDS: ISOSORBIDE MONONITRATE 60 MG TAB.ER.24H PO SCH (10:04)
[2017-02-06] MEDS: METOPROLOL TARTRATE 100 MG TABLET PO SCH ×2 (10:04→21:20)
[2017-02-06] MEDS: APIXABAN 2.5 MG TABLET PO SCH ×2 (10:04→17:41)
[2017-02-06] MEDS: PREDNISONE 20 MG TABLET PO SCH (10:04)
[2017-02-06] MEDS: LISINOPRIL 5 MG TABLET PO SCH ×2 (10:04→21:20)
[2017-02-06] MEDS: TAMSULOSIN HCL 0.4 MG CAP.SR.24H PO SCH (10:04)
[2017-02-06] MEDS: POTASSIUM CHLORIDE 10 MEQ TABLET.SA PO SCH (11:31)
--- NOTE | 2017-02-06 16:00 | PDOC PROGRESS REPORT ---
Subjective Progress Note for:: 02/06/17 Subjective:: This is a follow-up visit for atrial fibrillation patient. The patient is awaiting placement. He has no complaints today he denies any chest pain or shortness of breath. Physical Exam Vital Signs: Temp Pulse Resp BP Pulse Ox 97.4 F 76 19 98/64 L 100 02/05/17 20:00 02/05/17 20:00 02/05/17 20:00 02/06/17 12:00 02/05/17 20:00 Intake & Output 02/05/17 02/06/17 02/07/17 06:59 06:59 06:59 Intake Total 1490 1126 Balance 1490 1126 GENERAL: This is a well-developed well-nourished appearing white male resting on the side of his wheelchair eating lunch. HEART: Regular rate and rhythm. No murmurs, rubs or gallops. LUNGS: Clear to auscultation bilaterally with equal rise and fall of the chest. ABDOMEN: nondistended EXTREMETIES: No clubbing, cyanosis or 1+ edema. 2+ peripheral pulses bilaterally. NEURO: Awake, alert and oriented 3. Cranial nerves II through XII are grossly intact. PSYCH: Unchanged. Results Laboratory Results: 01/28/17 06:39 02/02/17 06:49 01/16/17 05:20 Troponin I 0.023 Impressions: Head CT 01/15/17 17:47 IMPRESSION: 1. Involutional changes of aging chronic microvascular ischemic disease. 2. A limited acute left parietal infarct cannot be ruled out. Head MRI 01/16/17 00:00 IMPRESSION: 1. Chronic changes. No acute infarct identified. Lung Scan-VQ NM 01/16/17 01:37 IMPRESSION: NEGATIVE FOR PULMONARY EMBOLI. Chest X-Ray 01/18/17 00:00 IMPRESSION: Worsening atelectasis or developing pneumonia in the middle lobe. Assessment & Plan - Diagnosis (1) Community acquired pneumonia Is this a current diagnosis for this admission?: YesPlan: Status post 7 day antibiotic treatment. (2) New onset atrial fibrillation Is this a current diagnosis for this admission?: YesPlan: stable (3) Vascular dementia Qualifiers: Dementia behavioral disturbance: with behavioral disturbance Qualified Code(s): F01.51 - Vascular dementia with behavioral disturbance Is this a current diagnosis for this admission?: YesPlan: Stable. (4) CKD (chronic kidney disease), stage III Is this a current diagnosis for this admission?: YesPlan: Stable. (5) DM w/o complication type II Qualifiers: Diabetes mellitus halfway insulin use: with termite technician use Qualified Code(s): E11.9 - Type 2 diabetes mellitus without complications Is this a current diagnosis for this admission?: YesPlan: Current medications. (6) Dyslipidemia Is this a current diagnosis for this admission?: YesPlan: Continue atorvastatin (7) Essential hypertension Is this a current diagnosis for this admission?: YesPlan: Current medications. - Time Time Spent with patient: Less than 15 minutes - Inpatient Certification Medical Necessity: Need Close Monitoring Due to Risk of Patient Decompensation
[2017-02-06] MEDS: INSULIN LISPRO 100 UNIT/ML 3 ML VIAL SUBCUT PRN ×2 (17:41→21:19)
[2017-02-06] MEDS: ATORVASTATIN CALCIUM 80 MG TABLET PO SCH (21:19)
[2017-02-06] MEDS: RISPERIDONE 1 MG TABLET PO SCH (21:19)
[2017-02-07] MEDS: GUAIFENESIN 600 MG TABLET.SA PO SCH ×2 (10:01→21:13)
[2017-02-07] MEDS: PREDNISONE 20 MG TABLET PO SCH (10:01)
[2017-02-07] MEDS: TAMSULOSIN HCL 0.4 MG CAP.SR.24H PO SCH (10:01)
[2017-02-07] MEDS: ASPIRIN 81 MG TABLET, ENT COATED PO SCH (10:02)
[2017-02-07] MEDS: GLIPIZIDE 10 MG TABLET PO SCH ×2 (10:02→18:00)
[2017-02-07] MEDS: DILTIAZEM HCL 120 MG CAP.SR.24H PO SCH (10:03)
[2017-02-07] MEDS: APIXABAN 2.5 MG TABLET PO SCH ×2 (10:03→18:00)
[2017-02-07] MEDS: METOPROLOL TARTRATE 100 MG TABLET PO SCH ×2 (10:11→23:45)
[2017-02-07] MEDS: ISOSORBIDE MONONITRATE 60 MG TAB.ER.24H PO SCH (10:11)
[2017-02-07] MEDS: LISINOPRIL 5 MG TABLET PO SCH ×2 (10:11→23:45)
[2017-02-07] MEDS: FUROSEMIDE 40 MG TABLET PO SCH ×2 (10:11→18:01)
[2017-02-07] MEDS: POTASSIUM CHLORIDE 10 MEQ TABLET.SA PO SCH (11:19)
[2017-02-07] MEDS: INSULIN LISPRO 100 UNIT/ML 3 ML VIAL SUBCUT PRN ×3 (12:48→21:14)
--- NOTE | 2017-02-07 13:15 | PDOC PROGRESS REPORT ---
Subjective Progress Note for:: 02/07/17 Subjective:: This is a follow-up visit for atrial fibrillation patient. The patient is awaiting placement. He has no complaints today he denies any chest pain or shortness of breath. Physical Exam Vital Signs: Temp Pulse Resp BP Pulse Ox 97.8 F 88 18 101/56 L 98 02/06/17 23:10 02/06/17 23:10 02/06/17 23:10 02/06/17 23:10 02/06/17 23:10 Intake & Output 02/06/17 02/07/17 02/08/17 06:59 06:59 06:59 Intake Total 1126 1620 Balance 1126 1620 GENERAL: This is a well-developed well-nourished appearing white male resting on the side of his wheelchair discussing his care with physical therapy in the hallway. NEURO: Awake, alert and oriented 3. Cranial nerves II through XII are grossly intact. PSYCH: Unchanged. Results Laboratory Results: 01/28/17 06:39 02/02/17 06:49 01/16/17 05:20 Troponin I 0.023 Impressions: Head CT 01/15/17 17:47 IMPRESSION: 1. Involutional changes of aging chronic microvascular ischemic disease. 2. A limited acute left parietal infarct cannot be ruled out. Head MRI 01/16/17 00:00 IMPRESSION: 1. Chronic changes. No acute infarct identified. Lung Scan-VQ NM 01/16/17 01:37 IMPRESSION: NEGATIVE FOR PULMONARY EMBOLI. Chest X-Ray 01/18/17 00:00 IMPRESSION: Worsening atelectasis or developing pneumonia in the middle lobe. Assessment & Plan - Diagnosis (1) Community acquired pneumonia Is this a current diagnosis for this admission?: YesPlan: Status post 7 day antibiotic treatment. (2) New onset atrial fibrillation Is this a current diagnosis for this admission?: YesPlan: stable (3) Vascular dementia Qualifiers: Dementia behavioral disturbance: with behavioral disturbance Qualified Code(s): F01.51 - Vascular dementia with behavioral disturbance Is this a current diagnosis for this admission?: YesPlan: Stable. (4) CKD (chronic kidney disease), stage III Is this a current diagnosis for this admission?: YesPlan: Stable. (5) DM w/o complication type II Qualifiers: Diabetes mellitus laborer marine terminal insulin use: with longterm use Qualified Code(s): E11.9 - Type 2 diabetes mellitus without complications Is this a current diagnosis for this admission?: YesPlan: Current medications. (6) Dyslipidemia Is this a current diagnosis for this admission?: YesPlan: Continue atorvastatin (7) Essential hypertension Is this a current diagnosis for this admission?: YesPlan: Current medications. - Time Time Spent with patient: Less than 15 minutes - Inpatient Certification Medical Necessity: Risk of Diagnosis Which Will Require Inpatient Eval/Care/ Monitoring
[2017-02-07] MEDS: RISPERIDONE 1 MG TABLET PO SCH (21:13)
[2017-02-07] MEDS: ATORVASTATIN CALCIUM 80 MG TABLET PO SCH (21:14)
[2017-02-08] MEDS: ASPIRIN 81 MG TABLET, ENT COATED PO SCH (09:49)
[2017-02-08] MEDS: FUROSEMIDE 40 MG TABLET PO SCH (09:50)
[2017-02-08] MEDS: GLIPIZIDE 10 MG TABLET PO SCH (09:50)
[2017-02-08] MEDS: GUAIFENESIN 600 MG TABLET.SA PO SCH (09:52)
[2017-02-08] MEDS: ISOSORBIDE MONONITRATE 60 MG TAB.ER.24H PO SCH (09:53)
[2017-02-08] MEDS: LISINOPRIL 5 MG TABLET PO SCH (09:53)
[2017-02-08] MEDS: METOPROLOL TARTRATE 100 MG TABLET PO SCH (09:53)
[2017-02-08] MEDS: TAMSULOSIN HCL 0.4 MG CAP.SR.24H PO SCH (09:53)
[2017-02-08] MEDS: PREDNISONE 20 MG TABLET PO SCH (09:54)
[2017-02-08] MEDS: APIXABAN 2.5 MG TABLET PO SCH (09:59)
[2017-02-08] MEDS ORDERED: DILTIAZEM HCL 120 MG CAP.SR.24H PO SCH (10:00)
[2017-02-08] MEDS ORDERED: DILTIAZEM HCL 30 MG TABLET PO SCH (10:00)
[2017-02-08] MEDS ORDERED: BACITRACIN ZINC OINTMENT 15 GM TP ONE (11:30)
[2017-02-08] MEDS: POTASSIUM CHLORIDE 10 MEQ TABLET.SA PO SCH (11:35)
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
[2017-02-08 14:45] VITALS: BP 109/61
[2017-02-09] MEDS ORDERED: BACITRACIN ZINC OINTMENT 15 GM TP SCH (10:00)
== END 2017-02-08 15:25 | DRG 308 ==
LOC: ER 16:27 → UNDOADMIN 22:52 → EH 22:52 → 3S 01-16 06:41 → 4S 01-31 16:11
PROVIDERS: ADMIT Family Medicine; ATTEND Family Medicine
DX: I48.91 Unspecified atrial fibrillation (principal); J18.9 Pneumonia, unspecified organism; J96.00 Acute respiratory failure, unspecified whether with hypoxia or hypercapnia; I50.30 Unspecified diastolic (congestive) heart failure; F01.50 Vascular dementia, unspecified severity, without behavioral disturbance, psychotic disturbance, mood disturbance, and anxiety; I12.9 Hypertensive chronic kidney disease with stage 1 through stage 4 chronic kidney disease, or unspecified chronic kidney disease; E11.22 Type 2 diabetes mellitus with diabetic chronic kidney disease; N18.3 Chronic kidney disease, stage 3 (moderate); I25.10 Atherosclerotic heart disease of native coronary artery without angina pectoris; Z66 Do not resuscitate; E78.5 Hyperlipidemia, unspecified; I67.9 Cerebrovascular disease, unspecified; N40.0 Benign prostatic hyperplasia without lower urinary tract symptoms; Z79.899 Other long term (current) drug therapy; Z79.82 Long term (current) use of aspirin; Z95.1 Presence of aortocoronary bypass graft; Z87.891 Personal history of nicotine dependence
CPT/HCPCS: 36415; 70450; 70551; 71010; 71020; 78582; 80048; 80053; 80061; 80307; 81001; 82140; 82803; 82962; 83735; 84439; 84443; 84484; 85025; 85027; 85379; 93005; 93010; 93306; 94660; 94667; 94668; 94799; 99285; A9540; A9567; G8978-GP; G8979-GP; G8987-GO; G8988-GO; G8996-GN; G8997-GN; G8998-GN; J1630; J1815; J1940; J2543; J2920; J2930; J3490; J7512; J7614; Q9969